=== PATIENT | female | born 1945 | race Caucasian/White ===

== ENCOUNTER 2019-10-30 06:30 | Day surgery (SDC) | payer OTHER ==
[2019-10-25 13:05] LABS: Basophils % 0.8 % (0-1.3); Hematocrit 44.6 % (36.0-45.0); Lymphocytes % 20.5 % (15.3-44.8); MPV 8.8 fL (7.6-11.3); RBC Red Blood Cell Count 4.74 M/uL (3.86-4.86)
[2019-10-25 13:14] LABS: Potassium 4.4 mmol/L (3.5-5.1)
--- NOTE | 2019-10-25 13:22 | RAD REPORT ---
EXAM DESCRIPTION: Everardo Tapia And Lisa (2 Views)10/25/2019 1:07 pm CLINICAL HISTORY: Pre op cardiac catheterization. Cardiomegaly COMPARISON: 2018 FINDINGS: The lungs appear clear of acute infiltrate. The heart is moderately enlarged Calcific densities overlying the shoulders may represent loose bodies IMPRESSION: No acute abnormalities displayed
--- NOTE | 2019-10-26 12:57 | EKG ---
Test Date: 2019-10-25 Test Time: 11:32:22 Implementation Coordinator: LEONARDO MEASUREMENT RESULTS: Intervals: Rate: 90 [place]: QRSD: 102 QT: 382 QTc: 467 [place]: P: [place]: QRS: -40 T: 135 INTERPRETIVE STATEMENTS: Atrial fibrillation Left axis deviation ST & T wave abnormality, consider lateral ischemia or digitalis effect Abnormal ECG Electronically Signed On 10-26-19 12:56:53 CDT by Tahir Lozano
[2019-10-30] MEDS ORDERED: LIDOCAINE 1% 20 ML MDV ONE (06:44)
[2019-10-30] MEDS ORDERED: HEPA 1000U/500MLS 1,000 UNIT/500 ML BAG IV ONE (06:44)
[2019-10-30] MEDS ORDERED: NA CHLORIDE 0.9% 500 ML ONE (07:08)
[2019-10-30] MEDS ORDERED: FENTANYL CITR 100 MCG/2 ML ONE (07:24)
[2019-10-30] MEDS ORDERED: MIDAZOLAM HCL 2 MG/2 ML INJ ONE (07:24)
[2019-10-30] MEDS ORDERED: ATROPINE SULF 1 MG/10 ML SYR IV ONE (07:24)
[2019-10-30] MEDS ORDERED: NA CHLORIDE 0.9% 0 ML ONE (07:24)
[2019-10-30 08:51] VITALS: TEMP 97.6
[2019-10-30 10:33] VITALS: BP 106/70; O2SAT 98
--- NOTE | 2019-10-30 22:58 | OP ---
Date of Procedure: 10/30/2019 Surgeon: Tahir Lozano MD Kiln Maintenance: Maxi Yousif. Procedures: Left heart catheterization, selective coronary arteriogram, and the left ventriculogram. Indication: With unstable angina, shortness of breath and atrial fibrillation. History Of Present Illness: Ms. Perez is 74, admitted as an outpatient to the [facility] today becau se of persistent dyspnea on exertion, chest tightness radiating to the right and left shoulder. She has a history of atrial fibrillation, has had congestive heart failure in the past. Description Of Procedure: She was prepped and draped in the routine sterile fashion. Given Versed a nd fentanyl for sedation. A 6-Hebrew sheath introduced in the right common femoral artery successful ly. Mickey catheter left and right were used to cannulate the left and right main respectively. He r right coronary was normal. It was small. Her left coronary system was normal. The left main and circumflex and LAD were normal. She was very left dominant. The pigtail was introduced in the left ventricle and angiography revealed an ejection fraction about 25-30% with severe global hypokinesis. Atrial fibrillation was noted. Her EDP was 20 mmHg. Patient tolerated the procedure well. Complication: None. Blood Loss: 5 mL. Anesthesia: Total conscious sedation was 30 minutes. Final Diagnoses: Severe congestive heart failure, atrial fibrillation. Plan: To continue her present regimen. She will resume Xarelto in the morning. I think, we need to consider the use of Entresto in addition to a beta-maura and I think if she does not improve, we s calin consider either ablation of her atrial fibrillation or possibly a biventricular pacemaker and d efibrillator. The case was discussed with the family. She can go home today after 2 hours of bedres t and I will see her in the office in a week. ALESIA/LOIDA Voice ID: [id number] Report ID: [id number]
== END 2019-10-30 10:15 | disposition home or self-care (01) ==
LOC: CCL 06:30
DX: I11.0 Hypertensive heart disease with heart failure (principal); I50.22 Chronic systolic (congestive) heart failure; I48.0 Paroxysmal atrial fibrillation; I70.213 Atherosclerosis of native arteries of extremities with intermittent claudication, bilateral legs; E78.5 Hyperlipidemia, unspecified; E03.9 Hypothyroidism, unspecified; Z79.01 Long term (current) use of anticoagulants; Z88.3 Allergy status to other anti-infective agents; Z82.49 Family history of ischemic heart disease and other diseases of the circulatory system
CPT/HCPCS: 93005; 85025; 80048; 36415; 85610; 85730; 71046; 93458; C1893; J2250; J3010; J7040; J0583

== ENCOUNTER 2019-11-23 19:42 | Observation (INO) | payer OTHER ==
[2019-11-23 20:16] LABS: Basophils % 0.4 % (0-1.3); Hematocrit 45.4 % (36.0-45.0); MPV 9.4 fL (7.6-11.3); RBC Red Blood Cell Count 4.85 M/uL (3.86-4.86)
--- NOTE | 2019-11-23 20:23 | RAD REPORT ---
EXAM DESCRIPTION: RAD - Chest Single View - 11/23/2019 8:17 pm CLINICAL HISTORY: CHEST PAIN Chest pain. COMPARISON: <Comparisons> FINDINGS: Portable technique limits examination quality. Mild interstitial pulmonary edema seen. The heart is moderately enlarged size. No displaced fractures . IMPRESSION: Mild CHF or volume overload.
[2019-11-23 20:36] LABS: Protime INR 4.38
[2019-11-23 20:42] LABS: ALT/SGPT 26 U/L (12-78); Albumin 3.8 g/dL (3.4-5.0); Alkaline Phosphatase 67 U/L (45-117); BUN Blood Urea Nitrogen 13 mg/dL (7-18); Bicarbonate 23 mmol/L (21-32); Bilirubin Direct 0.4 mg/dL (0-0.2); Bilirubin Total 1.8 mg/dL (0.2-1.0); Glucose Level 140 mg/dL (74-106); NT PRO-BNP 17460 pg/mL (<450); Protein, Total 7.3 g/dL (6.4-8.2); Sodium Level 132 mmol/L (136-145); Troponin (Emerg Dept Use Only) < 0.02 ng/mL (0.0-0.045)
[2019-11-23 20:54] LABS: AST/SGOT 38 U/L (15-37); Magnesium 1.6 mg/dL (1.8-2.4); Potassium 4.1 mmol/L (3.5-5.1)
[2019-11-23] MEDS ORDERED: FUROSEMIDE 40 MG/4 ML VIAL ONE (21:14)
--- NOTE | 2019-11-23 21:26 | ER ---
Nurse's Notes [facility] Name: Kimmy Perez Age: 74 yrs Sex: Female : 1945 Arrival Date: 11/23/2019 Time: 19:52 Bed 2 Private MD: Diagnosis: Acute combined systolic (congestive) and diastolic (congestive) heart failure;Chest pain on breathing Presentation: 11/22 19:52 Chief complaint: EMS states: Reports pt started feeling SOB, pt reports having ea medication change from digoxin to amiodarone 2 days ago. Pt reports she feels the medication change may have been the cause of her feeling this way. Coronavirus screen: Proceed with normal triage. Ebola Screen: No symptoms or risks identified at this time. Initial Sepsis Screen: Does the patient meet any 2 criteria? No. Patient's initial sepsis screen is negative. Does the patient have a suspected source of infection? No. Patient's initial sepsis screen is negative. Risk Assessment: Do you want to hurt yourself or someone else? Patient reports no desire to harm self or others. Onset of symptoms was November 23, 2019. 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 - Social history:: Patient/guardian denies using alcohol, street drugs, The patient lives with family, Smoking status: Patient denies any tobacco usage or history of. - Family history:: not pertinent. Screenin:57 Abuse screen: Denies threats or abuse. Nutritional screening: No deficits noted. ea Tuberculosis screening: No symptoms or risk factors identified. Fall Risk None identified. Assessment: 20:02 General: Appears uncomfortable, Behavior is calm, cooperative. Pain: Pain: Complains of ea pain in chest. Neuro: Level of Consciousness is awake, alert, obeys commands, Oriented to person, place, time. Respiratory: Airway is patent Respiratory effort is even, unlabored, Respiratory pattern is regular, symmetrical. EENT: Pt is deaf, and mute. Pt has a stoma to neck. Derm: Skin is pink, warm \T\ dry. 20:36 Reassessment: critical test result- 4.38 INR and PT 50.2 relayed by mg2 [id number] informed. 21:30 Reassessment: Patient and/or family updated on plan of care and expected duration. Pain ea level reassessed. Patient is alert, oriented x 3, equal unlabored respirations, skin warm/dry/pink. 22:37 Reassessment: Patient and/or family updated on plan of care and expected duration. Pain ea level reassessed. Patient is alert, oriented x 3, equal unlabored respirations, skin warm/dry/pink. 23:50 Reassessment: Patient and/or family updated on plan of care and expected duration. Pain ea level reassessed. Patient is alert, oriented x 3, equal unlabored respirations, skin warm/dry/pink. 11/23 00:04 Reassessment: Report given to receiving nurse on second floor. ea 00:18 Reassessment: Patient and/or family updated on plan of care and expected duration. Pain ea level reassessed. Patient is alert, oriented x 3, equal unlabored respirations, skin warm/dry/pink. Pt admitted to second floor. Left ED via wheelchair per tech. Pt tolerating well. No s/s of pain or discomfort noted to this time. Vital Signs: 11/22 19:52 BP 109 / 91; Pulse 88; Resp 20; Temp 98.9; Pulse Ox 97% on R/A; Weight 63.5 kg; Height ea 5 ft. 3 in. (160.02 cm); 20:54 BP 119 / 83; Pulse 92; Resp 19; Pulse Ox 94% on R/A; ea 21:37 BP 113 / 94; Pulse 93; Resp 19; Pulse Ox 95% ; ea 22:39 BP 130 / 89; Pulse 87; Resp 18; Pulse Ox 97% on R/A; mg2 23:30 BP 158 / 98; Pulse 91; Resp 18; Pulse Ox 95% on R/A; mg2 11/23 00:19 BP 167 / 87; Pulse 62; Resp 17; Temp 98.7; Pulse Ox 97% on R/A; ea 11/22 19:52 Body Mass Index 24.80 (63.50 kg, 160.02 cm) ea ED Course: 11/22 19:52 Patient arrived in ED. ea 19:53 Cedrick Heredia MD is Attending Physician. ma2 19:57 Triage completed. ea 19:58 Arm band placed on right wrist. Patient placed in an exam room, on a stretcher, on ea night monitor, on pulse oximetry. 19:58 Patient has correct armband on for positive identification. Placed in gown. Bed in low ea position. Call light in reach. Side rails up X2. 20:00 IV discontinued, intact, bleeding controlled, No redness/swelling at site. Pressure ea dressing applied, EMS IV discontinued. 20:04 Nadira Nicole RN is Primary Nurse. ea 20:07 Inserted saline lock: 20 gauge in left antecubital area, using aseptic technique. Blood mg2 collected. 20:10 No provider procedures requiring assistance completed. mg2 20:10 Maintain EMS IV. Dressing intact. Site clean \T\ dry. Gauge \T\ site: 20 \T\ RAC. mg2 20:18 XRAY Chest (1 view) In Process Unspecified. EDMS 21:25 Heri Abad is Hospitalizing Provider. ma2 Administered Medications: 21:18 Drug: Lasix 40 mg Route: IVP; Site: left antecubital; mg2 21:37 Follow up: Response: No adverse reaction ea Outcome: 21:25 Decision to Hospitalize by Provider. ma2 21:26 Instructed on the need for admit, Demonstrated understanding of instructions. ea 11/23 00:04 Condition: stable ea 00:04 Admitted to Med/surg accompanied by tech, via stretcher, room 216, with chart, Report mg2 called to SABRINA Morrissey 00:20 Patient left the ED. ea Signatures: Dispatcher [employer] EDMS Nadira Nicole, Cedrick Corrales RN, ea, MD MD maBryce Recinos RN RN mg2
--- NOTE | 2019-11-23 21:26 | EDPHYS ---
Physician Documentation [facility] Name: Kimmy Perez Age: 74 yrs Sex: Female : 1945 Arrival Date: 11/23/2019 Time: 19:52 Bed 2 Private MD: ED Physician Cedrick Heredia HPI: 11/22 20:10 This 74 yrs old Female presents to ER via EMS with complaints of chest pain\E\. ma2 20:10 The patient or guardian reports chest pain that is located primarily in the substernal ma2 area, anterior aspect of right upper chest. Onset: gradually, 1 day(s) ago. Associated signs and symptoms: Pertinent negatives: cough, dizziness, lower extremity pain, nausea. Severity of pain: At its worst the pain was moderate in the emergency department the pain is unchanged. The patient has experienced similar episodes in the past. 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 - Social history:: Patient/guardian denies using alcohol, street drugs, The patient lives with family, Smoking status: Patient denies any tobacco usage or history of. - Family history:: not pertinent. ROS: 20:10 Constitutional: Negative for fever, chills, and weight loss. ma2 20:10 All other systems are negative. Exam: 20:10 Constitutional: This is a well developed, well nourished patient who is awake, alert, ma2 and in no acute distress. Eyes: Pupils equal round and reactive to light, extra-ocular motions intact. Lids and lashes normal. Conjunctiva and sclera are non-icteric and not injected. Cornea within normal limits. Periorbital areas with no swelling, redness, or edema. ENT: Nares patent. No nasal discharge, no septal abnormalities noted. Tympanic membranes are normal and external auditory canals are clear. Oropharynx with no redness, swelling, or masses, exudates, or evidence of obstruction, uvula midline. Mucous membranes moist. Neck: Trachea midline, no thyromegaly or masses palpated, and no cervical lymphadenopathy. Supple, full range of motion without nuchal rigidity, or vertebral point tenderness. No Meningismus. Chest/axilla: Normal chest wall appearance and motion. Nontender with no deformity. No lesions are appreciated. Cardiovascular: Regular rate and rhythm with a normal S1 and S2. No gallops, murmurs, or rubs. Normal PMI, no JVD. No pulse deficits. Respiratory: Lungs have equal breath sounds bilaterally, clear to auscultation and percussion. No rales, rhonchi or wheezes noted. No increased work of breathing, no retractions or nasal flaring. Abdomen/GI: Soft, non-tender, with normal bowel sounds. No distension or tympany. No guarding or rebound. No evidence of tenderness throughout. MS/ Extremity: Pulses equal, no cyanosis. Neurovascular intact. Full, normal range of motion. Neuro: Awake and alert, GCS 15, oriented to person, place, time, and situation. Cranial nerves II-XII grossly intact. Motor strength 5/5 in all extremities. Sensory grossly intact. Cerebellar exam normal. Normal gait. Vital Signs: 19:52 BP 109 / 91; Pulse 88; Resp 20; Temp 98.9; Pulse Ox 97% on R/A; Weight 63.5 kg; Height ea 5 ft. 3 in. (160.02 cm); 20:54 BP 119 / 83; Pulse 92; Resp 19; Pulse Ox 94% on R/A; ea 21:37 BP 113 / 94; Pulse 93; Resp 19; Pulse Ox 95% ; ea 22:39 BP 130 / 89; Pulse 87; Resp 18; Pulse Ox 97% on R/A; mg2 23:30 BP 158 / 98; Pulse 91; Resp 18; Pulse Ox 95% on R/A; mg2 11/23 00:19 BP 167 / 87; Pulse 62; Resp 17; Temp 98.7; Pulse Ox 97% on R/A; ea 11/22 19:52 Body Mass Index 24.80 (63.50 kg, 160.02 cm) ea MDM: 11/22 19:53 Patient medically screened. ma2 20:10 Differential diagnosis: abnormal EKG, anxiety, coronary artery disease congestive heart ma2 failure gastroesophageal reflux disease (GERD), stable angina. Data reviewed: vital signs, nurses notes, lab test result(s), EKG. Counseling: I had a detailed discussion with the patient and/or guardian regarding: the historical points, exam findings, and any diagnostic results supporting the discharge/admit diagnosis, the presence of at least one elevated blood pressure reading (>120/80) during this emergency department visit, the need for outpatient follow up. 11/22 19:55 Order name: Basic Metabolic Panel [facility] 11/22 19:55 Order name: CBC with Diff [facility] 11/22 19:55 Order name: LFT's; Complete Time: 21:00 [facility] 11/22 19:55 Order name: Magnesium; Complete Time: 21:00 [facility] 11/22 19:55 Order name: NT PRO-BNP; Complete Time: 21:00 [facility] 11/22 19:55 Order name: PT-INR; Complete Time: 21:00 [facility] 11/22 19:55 Order name: Troponin (emerg Dept Use Only); Complete Time: 21:00 [facility] 11/22 19:55 Order name: XRAY Chest (1 view); Complete Time: 21:00 [facility] 11/22 19:55 Order name: EKG; Complete Time: 19:55 [facility] 11/22 19:55 Order name: Cardiac monitoring; Complete Time: 20:10 [facility] 11/22 19:55 Order name: EKG - Nurse/Tech; Complete Time: 20:10 [facility] 11/22 19:55 Order name: Basic Metabolic Panel; Complete Time: 21:00 [facility] 11/22 19:55 Order name: CBC with Automated Diff; Complete Time: 21:00 [facility] 11/22 19:55 Order name: IV Saline Lock; Complete Time: 20:10 [facility] 11/22 19:55 Order name: Labs collected and sent; Complete Time: 20:09 [facility] 11/22 19:55 Order name: O2 Per Protocol; Complete Time: 20:09 [facility] 11/22 19:55 Order name: O2 Sat Monitoring; Complete Time: 20:09 ia2 Administered Medications: 21:18 Drug: Lasix 40 mg Route: IVP; Site: left antecubital; mg2 21:37 Follow up: Response: No adverse reaction ea Disposition: 11/23/19 21:25 Hospitalization ordered by Heri Abad for Observation. Preliminary diagnosis are Acute combined systolic (congestive) and diastolic (congestive) heart failure, Chest pain on breathing. - Bed requested for Telemetry/MedSurg (observation). - Status is Observation. ea - Condition is Stable. - Problem is new. - Symptoms are unchanged. Signatures: Dispatcher [employer] Jaqueline Ann RN RN cg Nadira Nicole RN RN ea Cedrick Heredia MD MD ia2 Bryce Wright RN RN mg2 Corrections: (The following items were deleted from the chart) 23:38 21:25 Hospitalization Ordered by Heri Aabd for Observation. Preliminary diagnosis cg is Acute combined systolic (congestive) and diastolic (congestive) heart failure; Chest pain on breathing. Bed requested for Telemetry/MedSurg (observation). Status is Observation. Condition is Stable. Problem is new. Symptoms are unchanged. [facility] 23:40 23:38 11/23/2019 21:25 Hospitalization Ordered by Heri Abad for Observation. cg Preliminary diagnosis is Acute combined systolic (congestive) and diastolic (congestive) heart failure; Chest pain on breathing. Bed requested for Telemetry/MedSurg (observation). Status is Observation. Condition is Stable. Problem is new. Symptoms are unchanged. cg 11/23 00:20 11/22 23:40 11/23/2019 21:25 Hospitalization Ordered by Heri Abad for Observation. ea Preliminary diagnosis is Acute combined systolic (congestive) and diastolic (congestive) heart failure; Chest pain on breathing. Bed requested for Telemetry/MedSurg (observation). Status is Observation. Condition is Stable. Problem is new. Symptoms are unchanged. cg
--- NOTE | 2019-11-23 23:07 | P.HP ---
Certification for Inpatient Patient admitted to: Observation With expected LOS: <2 Midnights Practitioner: I am a practitioner with admitting privileges, knowledge of patient current condition, hospital course, and medical plan of care. Services: Services provided to patient in accordance with Admission requirements found in Title 42 Section 412.3 of the Code of Federal Regulations Patient History Date of Service: 11/23/19 Reason for admission: Right shoulder pain and shortness of breath History of Present Illness: 74-year-old woman with a history of chronic atrial fib, anticoagulating with Xarelto, history of congestive heart failure on Lasix maintenance therapy presented emergency department with a complaint of right shoulder pain which is worse with exertion and breathing. According to the son, she has chronic right shoulder pain from a remote history of fall. The shoulder pain relapse whenever patient is short of breath and working harder to breathe. Her digoxin was changed to amiodarone 2 days ago. She is being evaluated for electric cardioversion by her lpn instructor. Chest x-ray in the ED demonstrated mild CHF. Initial troponin is negative. BNP is severely elevated. EKG shows atrial fibrillation. Patient is placed under observation for further management. Allergies NSAIDS (Non-Steroidal Anti-Inflamma Allergy (Mild, Verified 10/25/19 12:25) Hives/Rash nitrofurantoin [From Macrobid] Adverse Reaction (Mild, Verified 10/25/19 12:25) palpitations Home Medications: Levothyroxine Sodium [Levothroid] 100 mcg PO DAILY 03/16/12 Furosemide [Lasix] 20 mg PO DAILY PRN #30 tablet 02/19/18 Rivaroxaban [Xarelto] 20 mg PO DAILY #30 tablet 02/19/18 Amiodarone HCl [Cordarone*] 1 tab PO BID 11/24/19 Carvedilol [Coreg] 6.25 mg PO BID 11/24/19 Nitroglycerin [Nitrostat*] 0.4 mg SL UD PRN #30 tab 11/24/19 traMADol HCL [Ultram*] 50 mg PO Q6H PRN #20 tab 11/24/19 - Past Medical/Surgical History Diabetic: No -: Atrial fibrillation -: Throat CA -: Laryngectomy -: Bilateral knee surgery -: Cholecystectomy - Family History Family History: Reviewed- Non-Contributory - Family History Father -: Heart disease, Cancer Mother -: Heart disease, Cancer - Social History Smoking Status: Never smoker Alcohol use: No CD- Drugs: No Caffeine use: Yes Review of Systems Other: Except as documented, all other systems reviewed and negative. Physical Examination - Physical Exam General: Alert, In no apparent distress HEENT: Normocephalic, Mucous membr. moist/pink, Sclerae nonicteric Neck: Supple, JVD not distended Respiratory: Clear to auscultation bilaterally, Normal air movement Cardiovascular: No edema, Normal S1 S2, No murmurs, Irregular heart rate/rhythm Gastrointestinal: Normal bowel sounds, Soft and benign, No tenderness Musculoskeletal: No swelling, No erythema Integumentary: No rashes Neurological: Normal speech, Normal strength at 5/5 x4 extr, Cranial nerves 3-12 intact - Studies Laboratory Data (last 24 hrs) 11/23/19 20:07: PT 50.2 H, INR 4.38 H* 11/23/19 20:07: WBC 6.7, Hgb 15.1 H, Hct 45.4 H, Plt Count 223 11/23/19 20:07: Sodium 132 L, Potassium 4.1, BUN 13, Creatinine 1.25, Glucose 140 H, Magnesium 1.6 L D, Total Bilirubin 1.8 H, AST 38 H, ALT 26, Alkaline Phosphatase 67 Assessment and Plan - Problems (Diagnosis) (1) Chronic atrial fibrillation Current Visit: Yes Status: Acute (2) Coagulopathy Current Visit: Yes Status: Acute (3) Chest pain Onset Date: 02/12/18 Current Visit: No Status: Acute (4) Rotator cuff injury Onset Date: 02/12/18 Current Visit: No Status: Acute (5) Acute on chronic diastolic heart failure Current Visit: Yes Status: Acute - Plan Place under observation. Chest pain appears atypical but it is worse with exertion Rule out ACS Trend troponin Hold Xarelto given coagulopathy and monitor PT and INR Echocardiogram Cardiology consult. Patient took multiple does of Lasix this morning and also given IV Lasix in the ED. She is more on the dry side and will hold Lasix. - Advance Directives Does patient have a Living Will: No Does patient have a Durable POA for Healthcare: No - Code Status/Comfort Care Code Status: Full Code
[2019-11-24] MEDS ORDERED: NA CHLORIDE 0.9% 1,000 ML ONE (00:24)
[2019-11-24 00:58] VITALS: BMI 22.6
[2019-11-24] MEDS ORDERED: NITROGLYCERIN 0.4 MG/TAB SL PRN (01:04)
[2019-11-24] MEDS: TRAMADOL HCL 50 MG TAB PO PRN ×2 (01:31→09:09)
[2019-11-24 01:49] LABS: HDL Cholesterol 51 mg/dL (40-60); LDL Cholesterol, Calculated 130 (<130); Troponin I < 0.02 ng/mL (0.0-0.045)
[2019-11-24 06:01] LABS: Absolute Lymphocytes (CBC) 0.9 K/uL (0.7-4.9); Basophils % 0.3 % (0-1.3); Hematocrit 40.9 % (36.0-45.0); Lymphocytes % 13.9 % (15.3-44.8); MPV 9.7 fL (7.6-11.3); RBC Red Blood Cell Count 4.46 M/uL (3.86-4.86)
[2019-11-24 06:08] LABS: BUN Blood Urea Nitrogen 13 mg/dL (7-18); Bicarbonate 26 mmol/L (21-32); Glucose Level 103 mg/dL (74-106); Potassium 3.3 mmol/L (3.5-5.1); Sodium Level 135 mmol/L (136-145); Troponin I < 0.02 ng/mL (0.0-0.045)
--- NOTE | 2019-11-24 08:48 | P.DS ---
Admission Date: 11/23/19 Discharge Date: 11/24/19 Disposition: ROUTINE DISCHARGE Discharge Condition: FAIR Reason for Admission: Right shoulder pain and shortness of breath - Problems (1) Chronic atrial fibrillation Status: Acute (2) Coagulopathy Status: Acute (3) Chest pain Onset Date: 02/12/18 Status: Acute (4) Rotator cuff injury Onset Date: 02/12/18 Status: Acute (5) Acute on chronic diastolic heart failure Status: Acute Brief History of Present Illness: 74-year-old woman with a history of chronic atrial fib, anticoagulating with Xarelto, history of congestive heart failure on Lasix maintenance therapy presented emergency department with a complaint of right shoulder pain which is worse with exertion and breathing. According to the son, she has chronic right shoulder pain from a remote history of fall. The shoulder pain relapse whenever patient is short of breath and working harder to breathe. Her digoxin was changed to amiodarone 2 days ago. She is being evaluated for electric cardioversion by her junior qa analyst. Chest x-ray in the ED demonstrated mild CHF. Initial troponin is negative. BNP is severely elevated. EKG shows atrial fibrillation. Patient placed under observation for further management. Hospital Course: Patient received a dose of IV Lasix in the ED. She appeared compensated for CHF. Troponin trended came back negative. Patient noted to have coagulopathy. With INR at 4.38. I suspect significant interaction between amiodarone and Xarelto leading to the significant coagulopathy. Case discussed with cardiology.Xarelto changed to Eliquis 2.5 mg b.i.d. Patient has normal coronary arteries by cardiac catheterization 3 weeks ago. I suspect her symptoms are related to CHF exacerbation. Patient has clinically improved and deemed stable for discharge. Patient follows with an housesmith who is planning electric cardioversion in the near future. Vital Signs/Physical Exam: Temp Pulse Resp BP Pulse Ox 96.9 F 76 20 131/62 96 11/24/19 04:00 11/24/19 04:00 11/24/19 04:00 11/24/19 04:00 11/24/19 04:00 General: Alert, In no apparent distress Neck: Other (Tracheostomy) Respiratory: Clear to auscultation bilaterally, Normal air movement Cardiovascular: No edema, Normal S1 S2, Irregular heart rate/rhythm Gastrointestinal: Normal bowel sounds, Soft and benign, No tenderness Musculoskeletal: No swelling Integumentary: No rashes Laboratory Data at Discharge: WBC 6.4 K/uL (4.3-10.9) 11/24/19 05:24 Hgb 13.8 g/dL (12.0-15.0) 11/24/19 05:24 Hct 40.9 % (36.0-45.0) 11/24/19 05:24 Plt Count 218 K/uL (152-406) 11/24/19 05:24 PT 50.2 SECONDS (9.5-12.5) H 11/23/19 20:07 INR 4.38 H* 11/23/19 20:07 Sodium 135 mmol/L (136-145) L 11/24/19 05:24 Potassium 3.3 mmol/L (3.5-5.1) L 11/24/19 05:24 BUN 13 mg/dL (7-18) 11/24/19 05:24 Creatinine 1.04 mg/dL (0.55-1.3) 11/24/19 05:24 Glucose 103 mg/dL (74-106) 11/24/19 05:24 Magnesium 1.6 mg/dL (1.8-2.4) L D 11/23/19 20:07 Total Bilirubin 1.8 mg/dL (0.2-1.0) H 11/23/19 20:07 AST 38 U/L (15-37) H 11/23/19 20:07 ALT 26 U/L (12-78) 11/23/19 20:07 Alkaline Phosphatase 67 U/L (45-117) 11/23/19 20:07 Troponin I < 0.02 ng/mL (0.0-0.045) 11/24/19 05:24 Triglycerides 136 mg/dL (<150) 11/24/19 01:22 Cholesterol 208 mg/dL (<200) H 11/24/19 01:22 HDL Cholesterol 51 mg/dL (40-60) 11/24/19 01:22 Cholesterol/HDL Ratio 4.08 11/24/19 01:22 Home Medications: Levothyroxine Sodium [Levothroid] 100 mcg PO DAILY 03/16/12 Furosemide [Lasix] 20 mg PO DAILY PRN #30 tablet 02/19/18 Amiodarone HCl [Cordarone*] 1 tab PO BID 11/24/19 Amiodarone HCl [Cordarone*] 200 mg PO DAILY 30 Days #30 tab 11/24/19 Apixaban [Eliquis] 2.5 mg PO BID #60 tablet 11/24/19 Carvedilol [Coreg] 6.25 mg PO BID 11/24/19 Nitroglycerin [Nitrostat*] 0.4 mg SL UD PRN #30 tab 11/24/19 Pantoprazole Sodium [Protonix] 40 mg PO DAILY 30 Days #30 tablet. 11/24/19 traMADol HCL [Ultram*] 50 mg PO Q6H PRN #20 tab 11/24/19 New Medications: Amiodarone HCl [Cordarone*] 200 mg PO DAILY 30 Days #30 tab Apixaban [Eliquis] 2.5 mg PO BID #60 tablet Nitroglycerin [Nitrostat*] 0.4 mg SL UD PRN #30 tab PRN Reason: Pain Scale 2-4 (Mild) Pantoprazole Sodium [Protonix] 40 mg PO DAILY 30 Days #30 tablet. traMADol HCL [Ultram*] 50 mg PO Q6H PRN #20 tab PRN Reason: Pain Scale 5-7 (Moderate) Followup: Tahir Lozano MD [ACTIVE - CAN ADMIT] -
[2019-11-24] MEDS ORDERED: PROMETHAZINE INJ 25 MG/ML AMP IM ONE (09:46)
[2019-11-24 10:03] VITALS: BP 121/75; TEMP 97.6
--- NOTE | 2019-11-24 10:18 | EKG ---
Test Date: 2019-11-23 Test Time: 19:55:26 Catalogue Clerk: ALBERT MEASUREMENT RESULTS: Intervals: Rate: 90 VT: QRSD: 114 QT: 414 QTc: 506 [place]: P: VT: QRS: -43 T: 137 INTERPRETIVE STATEMENTS: Atrial fibrillation with premature ventricular or aberrantly conducted complexes Left axis deviation Incomplete left bundle branch block Nonspecific ST and T wave abnormality, probably digitalis effect Prolonged QT Abnormal ECG Compared to ECG 10/25/2019 11:32:22 Ventricular premature complex(es) now present Left bundle-branch block now present Prolonged QT interval now present Possible ischemia no longer present ST (T wave) deviation still present Electronically Signed On 11-24-19 10:17:42 CDT by Tahir Lozano
--- NOTE | 2019-11-24 13:31 | CON ---
Date of Consultation: 11/24/[address] Abad on 11/23/2019. I saw the patient on 11/24/2019. Reason For Consultation: Chest pain. History Of Present Illness: Ms. Perez is a 74-year-old woman. She is known to me from previous of fice visits and admission and a recent catheterization on 10/29/2019, where she was found to have nor mal coronaries, but was admitted for chest pain regardless. Patient has a history of CHF, AFib, hypo thyroidism. She has a history of deafness. She is legally blind and has had ear, nose, and throat c ancer in the past. I specifically cathed her a couple of weeks ago because of continuing symptoms of chest tightness, also worsening congestive heart failure, and atrial fibrillation, was found to have normal coronaries. Apparently, she saw Electrophysiology not long ago. I was hoping when she sees him, she does an ablation, but she is not really sure of the details and I will check on that myself, but she is now on amiodarone, in addition to Coreg, Xarelto, Lasix, and Synthroid, came in with atyp ical chest pain. Negative troponin. Potassium was 3.3, magnesium was 1.6. Her BNP was 17,460. Her INR was more than 4. Allergies: SHE IS ALLERGIC TO NONSTEROIDALS. Medications: Listed earlier. Review of Systems: Negative. Social History: Negative. Family History: Negative. Physical Examination: Vital Signs: Stable, afebrile. Atrial fibrillation, rate of 80. HEENT: Negative. Neck: Supple with no bruit, lymphadenopathy, JVD, or thyromegaly. Chest: Clear to auscultation and percussion. Cardiac: Revealed a regular rhythm and rate. No murmurs, gallops, or rubs. Abdomen: Benign. Extremities: Revealed no clubbing, cyanosis, or edema. Diagnostic Data: As stated earlier. Impression And Plan: 1.Chronic systolic congestive heart failure. 2.Chronic atrial fibrillation. 3.Normal coronaries. 4.Hypothyroidism. 5.Deafness. I think we need to switch her Xarelto to Eliquis because of elevated INR, which may have been the com bination of amiodarone and Xarelto. I will contact her EP doctor myself and see what was the plan be cause I was hoping she will have an ablation to get rid of her atrial fibrillation and maybe improve her ejection fraction. This may have been delayed or postponed because of the COVID virus situation. I will continue her present regimen. She absolutely does not need any more cardiac workup at this point, neither echocardiogram nor catheterization nor stress test, at least she can go home. I will discuss the case further with Dr. Abad. ALESIA/LOIDA Voice ID: [id number] Report ID: [id number]
[2019-11-24 13:49] VITALS: O2SAT 92
== END 2019-11-24 13:40 | disposition home or self-care (01) ==
LOC: ER 19:42 → ERHOLD 23:11 → 2ND 11-24 00:08
PROVIDERS: ADMIT Internal Medicine; ATTEND Internal Medicine
DX: R07.89 Other chest pain (principal); I50.22 Chronic systolic (congestive) heart failure; I48.20 Chronic atrial fibrillation, unspecified; E03.9 Hypothyroidism, unspecified; H91.90 Unspecified hearing loss, unspecified ear; H54.8 Legal blindness, as defined in USA; M25.511 Pain in right shoulder; G89.29 Other chronic pain; I44.7 Left bundle-branch block, unspecified; Z79.01 Long term (current) use of anticoagulants; Z79.899 Other long term (current) drug therapy; Z91.81 History of falling
CPT/HCPCS: 93005; 85025 ×2; 80048 ×2; 36415; 83735; 85610; 80061; 80076; 84484 ×3; 83880; 71045; 96374; 99285; J2550; J1940; J7030; G0378 ×2

== ENCOUNTER 2019-12-04 18:19 | Inpatient (IN) | payer OTHER ==
[2019-12-04 19:56] LABS: Absolute Lymphocytes (CBC) 0.9 K/uL (0.7-4.9); Basophils % 0.7 % (0-1.3); Hematocrit 43.7 % (36.0-45.0); Lymphocytes % 17.7 % (15.3-44.8); RBC Red Blood Cell Count 4.68 M/uL (3.86-4.86)
[2019-12-04] MEDS ORDERED: FENTANYL CITR 100 MCG/2 ML ONE (20:14)
[2019-12-04] MEDS ORDERED: ONDANSETRON 4 MG/2 ML VIAL ONE (20:14)
[2019-12-04] MEDS ORDERED: NA CHLORIDE 0.9% 1,000 ML ONE (20:14)
[2019-12-04 20:20] LABS: ALT/SGPT 71 U/L (12-78); AST/SGOT 59 U/L (15-37); Albumin 3.4 g/dL (3.4-5.0); Alkaline Phosphatase 97 U/L (45-117); BUN Blood Urea Nitrogen 19 mg/dL (7-18); Bicarbonate 28 mmol/L (21-32); Bilirubin Direct 0.8 mg/dL (0-0.2); Glucose Level 167 mg/dL (74-106); Magnesium 2.1 mg/dL (1.8-2.4); NT PRO-BNP 16066 pg/mL (<450); Potassium 3.4 mmol/L (3.5-5.1); Protein, Total 6.8 g/dL (6.4-8.2); Protime INR 2.71; Sodium Level 135 mmol/L (136-145); Troponin (Emerg Dept Use Only) < 0.02 ng/mL (0.0-0.045)
--- NOTE | 2019-12-04 20:50 | RAD REPORT ---
EXAM DESCRIPTION: RAD - Chest Single View - 12/04/2019 7:57 pm CLINICAL HISTORY: CHEST PAIN, shortness of breath COMPARISON: November 22 portable chest TECHNIQUE: AP portable chest image was obtained 12/04/2019 7:57 pm . FINDINGS: No peripheral mass consolidation. Lung markings less pronounced than seen previously. Card iomegaly is present. Vasculature is mildly prominent. No measurable pleural effusion and no pneumotho rax. No acute bony abnormality seen. No acute aortic findings suspected. IMPRESSION: Cardiomegaly similar to comparison. Vasculature and lung markings are less prominent than seen previously. No significant failure or volu me overload at this time.
--- NOTE | 2019-12-04 21:13 | RAD REPORT ---
EXAM DESCRIPTION: CT - Angio Aorta For Dissection - 12/04/2019 8:48 pm CLINICAL HISTORY: Chest pain;Abdominal distention COMPARISON: Portable chest same date, CT study February 2012 TECHNIQUE: Dynamically enhanced 3 mm thick images of the chest, abdomen, and upper pelvis were obtai hardeep during administration of approximately 150mL Isovue 370 IV contrast. Sagittal and coronal reconst ruction images were generated using MIP and reviewed. Exam utilizes a protocol to evaluate entire cou rse of the aorta. All CT scans are performed using dose optimization technique as appropriate and may include automated exposure control or mA/KV adjustment according to patient size. FINDINGS: Aorta is normal in diameter with no dissection or other acute aortic findings. Reconstruct ion images show no significant findings. No pulmonary artery acute finding. Cardiomegaly is present primarily a biatrial enlargement process. Left ventricle is prominent as well. No pericardial effusion. No peripheral mass or consolidation. No measurable ground-glass opacification. Interstitial pattern i s not clearly outside of normal range. Trace amounts of pleural fluid present. No pleural thickening or pleural based mass. No pneumothorax. Small reactive type hilar lymph nodes are present. No mediastinal lymphadenopathy. No chest wall mass or abnormal axillary lymphadenopathy. Mild narrowing of the origin of the celiac artery. No narrowing of the superior mesenteric artery. IM A is patent. No renal artery abnormality seen. The liver, spleen and pancreas show no suspicious find ings. No renal parenchymal abnormality seen. Medial to the left kidney there is a 4 centimeter oval f luid attenuation mass. Etiology is uncertain. This was present and measured 3.3 cm in 2012. This is n ot seen as a significant finding. No suspicious mass or abnormal lymphadenopathy. No free air or pne umatosis. Small amount of free fluid is present in the dependent portion of the pelvis. No urinary bl adder abnormality. Uterus and ovaries show no suspicious findings for age. IMPRESSION: Negative CT scan of the aorta. Patient has significant cardiomegaly new from 2012. No pericardial effusion. Mild failure is possible . No significant degree of failure or volume overload. No acute findings in the abdomen or pelvis. Cystic or low-density 4 centimeter mass medial to the lef t kidney has slowly enlarged since 2012 were it measured 3.3 cm. Etiology is uncertain. This is not s een as significant given the benign characteristics and slow growth over an 8 year interval.
[2019-12-04] MEDS ORDERED: ACETYLCYST 6,000 MG/30 ML VIAL ONE (22:00)
[2019-12-04] MEDS ORDERED: IPRATROPIUM BROM 0.5MG/2.5ML ONE (22:11)
[2019-12-04] MEDS ORDERED: LEVALBUTEROL 1.25 MG/3 ML NEB ONE (22:11)
--- NOTE | 2019-12-04 22:54 | P.HP ---
Certification for Inpatient Patient admitted to: Observation With expected LOS: <2 Midnights Practitioner: I am a practitioner with admitting privileges, knowledge of patient current condition, hospital course, and medical plan of care. Services: Services provided to patient in accordance with Admission requirements found in Title 42 Section 412.3 of the Code of Federal Regulations Patient History Date of Service: 12/04/19 Reason for admission: Abdominal pain History of Present Illness: 74-year-old woman with a history of chronic atrial fibrillation, tracheostomy, congestive heart presented emergency department with a complaint of right upper quadrant pain. Patient has been scheduled for cardiac ablation for rapid heart rate atrial fibrillation. She was here 2 weeks ago for nonspecific symptom, seen by cardiology and discharged to home. Her workup in the ED has been unremarkable compared to previous findings, except that her systolic blood pressure was in the 80s in the ED. She was in AFib with RVR at a rate of [address] angiogram was done which was negative for aneurysm or dissection, reported cardiomegaly and left renal cyst. She has significant tenderness in the right upper quadrant, CT scan report normal looking liver. She has a history of cholecystectomy. Patient is placed under observation for further evaluation. Allergies NSAIDS (Non-Steroidal Anti-Inflamma Allergy (Mild, Verified 10/25/19 12:25) Hives/Rash nitrofurantoin [From Macrobid] Adverse Reaction (Mild, Verified 10/25/19 12:25) palpitations Home Medications: Levothyroxine Sodium [Levothroid] 100 mcg PO DAILY 03/16/12 Furosemide [Lasix] 20 mg PO DAILY PRN #30 tablet 02/19/18 Amiodarone HCl [Cordarone*] 1 tab PO BID 11/24/19 Amiodarone HCl [Cordarone*] 200 mg PO DAILY 30 Days #30 tab 11/24/19 Apixaban [Eliquis] 2.5 mg PO BID #60 tablet 11/24/19 Carvedilol [Coreg] 6.25 mg PO BID 11/24/19 Nitroglycerin [Nitrostat*] 0.4 mg SL UD PRN #30 tab 11/24/19 Pantoprazole Sodium [Protonix] 40 mg PO DAILY 30 Days #30 tablet. 11/24/19 traMADol HCL [Ultram*] 50 mg PO Q6H PRN #20 tab 11/24/19 - Past Medical/Surgical History Diabetic: No -: Atrial fibrillation -: Throat CA -: CHF -: Throat Cancer -: Deaf/mute -: Laryngectomy -: Bilateral knee surgery -: Cholecystectomy -: valente fibroid mass removal on her breast - Family History Father -: Heart disease, Cancer Mother -: Heart disease, Cancer - Social History Alcohol use: No CD- Drugs: No Caffeine use: Yes Review of Systems Other: Except as documented, all other systems reviewed and negative. Physical Examination - Physical Exam General: Alert, In no apparent distress, Oriented x3 HEENT: Mucous membr. moist/pink, Sclerae nonicteric Neck: Supple, JVD not distended Respiratory: Clear to auscultation bilaterally, Normal air movement Cardiovascular: No edema, Normal S1 S2, Irregular heart rate/rhythm Gastrointestinal: Normal bowel sounds, Non-distended, Tenderness (Right upper quadrant) Musculoskeletal: No swelling, No erythema Integumentary: No rashes Neurological: Normal speech, Normal strength at 5/5 x4 extr - Studies Laboratory Data (last 24 hrs) 12/04/19 19:45: Lipase 109 12/04/19 19:43: PT 31.4 H, INR 2.71 12/04/19 19:43: WBC 5.2 D, Hgb 14.4, Hct 43.7, Plt Count 261 12/04/19 19:43: Sodium 135 L, Potassium 3.4 L, BUN 19 H, Creatinine 1.49 H, Glucose 167 H, Magnesium 2.1 D, Total Bilirubin 2.0 H, AST 59 H, ALT 71, Alkaline Phosphatase 97 Assessment and Plan - Problems (Diagnosis) (1) Abdominal pain Current Visit: Yes Status: Acute (2) Atrial fibrillation with rapid ventricular response Onset Date: 02/12/18 Current Visit: No Status: Acute (3) Hypotension Current Visit: Yes Status: Acute - Plan Not sure if patient's abdominal pain is secondary to ischemic bowel from atrial fibrillation and hypotension. Place under observation. Monitor blood pressure. Consider vasopressors for MAP less than 65. May probably need to transition to oral midodrine if pressors needed. Obtain RUQ sono. Continue home medications for atrial fibrillation. Continue anticoagulation. Hold Lasix for now given low BP. - Advance Directives Does patient have a Living Will: No Does patient have a Durable POA for Healthcare: No
--- NOTE | 2019-12-04 23:14 | EDPHYS ---
Physician Documentation [facility] Name: Kimmy Perez Age: 74 yrs Sex: Female : 1945 Arrival Date: 12/04/2019 Time: 18:23 Bed 14 Private MD: ED Physician Brian Osborne HPI: 12/03 19:56 This 74 yrs old Female presents to ER via Ambulatory with complaints of Chest regla Pain. 19:56 The patient or guardian reports chest pain that is located primarily in the substernal regla area, anterior chest wall, bilaterally. Onset: 1 day(s) ago. 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 - Social history:: Smoking status: Patient denies any tobacco usage or history of. - Family history:: not pertinent. ROS: 19:56 Constitutional: Negative for fever, chills, and weight loss, Eyes: Negative for injury, regla pain, redness, and discharge, ENT: Negative for injury, pain, and discharge, Neck: Negative for injury, pain, and swelling, Back: Negative for injury and pain, : Negative for injury, bleeding, discharge, and swelling, MS/Extremity: Negative for injury and deformity, Skin: Negative for injury, rash, and discoloration, Neuro: Negative for headache, weakness, numbness, tingling, and seizure, Psych: Negative for depression, anxiety, suicide ideation, homicidal ideation, and hallucinations, Allergy/Immunology: Negative for hives, rash, and allergies, Endocrine: Negative for neck swelling, polydipsia, polyuria, polyphagia, and marked weight changes, Hematologic/Lymphatic: Negative for swollen nodes, abnormal bleeding, and unusual bruising. 19:56 Cardiovascular: Positive for chest pain. 19:56 Respiratory: Positive for cough, shortness of breath. 19:56 Abdomen/GI: Positive for abdominal pain, abdominal cramps, abdominal distension, of the epigastric area, right upper quadrant and left upper quadrant. Exam: 19:56 Constitutional: This is a well developed, well nourished patient who is awake, alert, regla and in no acute distress. Head/Face: Normocephalic, atraumatic. Eyes: Pupils equal round and reactive to light, extra-ocular motions intact. Lids and lashes normal. Conjunctiva and sclera are non-icteric and not injected. Cornea within normal limits. Periorbital areas with no swelling, redness, or edema. Neck: Trachea midline, no thyromegaly or masses palpated, and no cervical lymphadenopathy. Supple, full range of motion without nuchal rigidity, or vertebral point tenderness. No Meningismus. Chest/axilla: Normal chest wall appearance and motion. Nontender with no deformity. No lesions are appreciated. Respiratory: Lungs have equal breath sounds bilaterally, clear to auscultation and percussion. No rales, rhonchi or wheezes noted. No increased work of breathing, no retractions or nasal flaring. Back: No spinal tenderness. No costovertebral tenderness. Full range of motion. Female : Normal external genitalia. Skin: Warm, dry with normal turgor. Normal color with no rashes, no lesions, and no evidence of cellulitis. MS/ Extremity: Pulses equal, no cyanosis. Neurovascular intact. Full, normal range of motion. Neuro: Awake and alert, GCS 15, oriented to person, place, time, and situation. Cranial nerves II-XII grossly intact. Motor strength 5/5 in all extremities. Sensory grossly intact. Cerebellar exam normal. Normal gait. Psych: Awake, alert, with orientation to person, place and time. Behavior, mood, and affect are within normal limits. 19:56 ENT: Posterior pharynx: is normal, no acute changes, trach. 19:56 Cardiovascular: Rate: tachycardic, Rhythm: irregularly irregular, Pulses: Pulses are 4+ in bilateral radial, brachial, femoral, popliteal, posterior tibial and and dorsalis pedis arteries.. Heart sounds: normal, Edema: is not appreciated, JVD: is not appreciated. 19:56 Respiratory: the patient does not display signs of respiratory distress, Respirations: normal, no acute changes, Breath sounds: decreased breath sounds, rhonchi, wheezing: expiratory that is mild, is heard diffusely. 19:56 Abdomen/GI: Inspection: distension, Bowel sounds: normal, Palpation: mild abdominal tenderness, Liver: no appreciated palpable abnormalities, Hernia: not appreciated. 12/04 18:37 ECG was reviewed by the Attending Physician. kdr Vital Signs: 12/03 18:57 BP 105 / 90; Pulse 104; Resp 18; Temp 97.9; Pulse Ox 100% on R/A; ph 20:30 BP 90 / 57; Pulse 86; Resp 18; Pulse Ox 98% on R/A; ea 22:30 BP 109 / 97; Pulse 99; Resp 19; Pulse Ox 93% on R/A; ea 23:30 BP 104 / 78; Pulse 86; Resp 18; Pulse Ox 93% ; ea 12/04 00:00 BP 105 / 92; Pulse 86; Resp 19; Pulse Ox 98% on R/A; ea 02:00 BP 110 / 78; Pulse 84; Resp 20; Pulse Ox 94% on R/A; ea 04:00 BP 115 / 96; Pulse 78; Resp 20; Pulse Ox 97% ; ea MDM: 12/03 19:11 Patient medically screened. [facility] 19:58 Data reviewed: vital signs, nurses notes, lab test result(s), EKG, radiologic studies, [facility] CT scan, plain films. 19:59 Antibiotic administration: Not indicated. Differential diagnosis: asthma, Bronchitis regla abnormal EKG, congestive heart failure esophagitis, hiatal hernia, pancreatitis, peptic ulcer disease, pneumonia, pulmonary embolus, stable angina, thoracic aortic disection, acute coronary syndrome, coronary artery disease, non-specific abd pain, pancreatitis, Pyelonephritis, urinary tract infection. HEART Score: History: Moderately Suspicious (1), ECG: Non specific repolarization disturbance / LBTB / PM (1), Age: > or = 65 years (2), Risk Factors: > or = 3 Risk factors for atherosclerotic disease (2), [Hypercholesterolemia] [Hypertension] [+ Family HX]. The patient was not given aspirin in the Emergency Department. Not indicated due to patient's past medical history. The patient's deep vein thrombosis risk score was calculated as follows: Total Score: 0. This patient was found to be at low risk for a deep vein thrombosis by using the Well's assessment criteria. The patient's pulmonary embolism risk score was calculated as follows: the patients heart rate is greater than 100 beats per minute (1.5 Pts) Total Score: 0-2 points. This patient was found to be at low risk for a pulmonary embolism by using the Well's assessment criteria. Immunization status: Pneumococcal vaccine: Influenza vaccine: Data interpreted: conveyor monitor: rate is 104 beats/min, Pulse oximetry: on 2L(s) per nasal canula, is 100 %. Test interpretation: by ED physician or midlevel provider: ECG, plain radiologic studies. 21:42 ED course: pt co of chest pain abd abdominal pain. ED course: chf, abd pain, renal regla insufficiency acure on chronic. 12/03 18:56 Order name: Basic Metabolic Panel; Complete Time: 21:11 12/03 18:56 Order name: CBC with Diff; Complete Time: 21:11 12/03 18:56 Order name: LFT's; Complete Time: 21:11 12/03 18:56 Order name: Magnesium; Complete Time: 21:11 12/03 18:56 Order name: NT PRO-BNP; Complete Time: 21:11 12/03 18:56 Order name: PT-INR; Complete Time: 21:11 12/03 18:56 Order name: Troponin (emerg Dept Use Only); Complete Time: 21:11 12/03 19:55 Order name: Lipase; Complete Time: 21:11 [facility] 12/03 19:55 Order name: Urine Culture [facility] 12/03 23:18 Order name: Urine Dipstick--Ancillary (enter results) ar5 12/04 07:54 Order name: CBC with Automated Diff [facility] 12/04 08:32 Order name: Comprehensive Metabolic Panel [facility] 12/04 08:32 Order name: Phosphorus [facility] 12/04 08:32 Order name: T4 Free [facility] 12/03 18:56 Order name: XRAY Chest (1 view); Complete Time: 21:11 12/03 21:13 Order name: CT Chest Abdomen Pelvis W/O Contrast [facility] 12/03 21:15 Order name: CT; Complete Time: 21:40 [facility] 12/04 08:32 Order name: Magnesium [facility] 12/04 08:32 Order name: Thyroid Stimulating Hormone [facility] 12/04 09:21 Order name: US [facility] 12/04 15:00 Order name: CORONAVIRUS [facility] 12/04 19:06 Order name: Glucose, Ancillary Testing [facility] 12/04 19:13 Order name: Glucose, Ancillary Testing [facility] 12/04 20:51 Order name: Glucose, Ancillary Testing [facility] 12/04 22:07 Order name: Urine Dipstick-Ancillary [facility] 12/05 08:07 Order name: CBC with Automated Diff [facility] 12/05 08:07 Order name: Basic Metabolic Panel [facility] 12/05 10:37 Order name: CBC Smear Scan [facility] 12/05 12:45 Order name: Glucose, Ancillary Testing [facility] 12/03 18:56 Order name: EKG; Complete Time: 18:57 ph 12/03 18:56 Order name: Cardiac monitoring; Complete Time: 19:53 ph 12/03 18:56 Order name: EKG - Nurse/Tech; Complete Time: 19:53 ph 12/03 18:56 Order name: IV Saline Lock; Complete Time: 19:53 ph 12/03 18:56 Order name: Labs collected and sent; Complete Time: 19:53 ph 12/03 18:56 Order name: O2 Per Protocol; Complete Time: 19:53 ph 12/03 18:56 Order name: O2 Sat Monitoring; Complete Time: 19:53 ph 12/03 19:55 Order name: Urine Dipstick-Ancillary (obtain specimen); Complete Time: 04:56 regla 12/04 09:23 Order name: ED[facility] 12/04 19:02 Order name: [facility] EC/09 18:37 Rate is 101 beats/min. Rhythm is regular, Sinus Rhythm with Unifocal PVCs, Left bundle kdr branch block. QRS [place] is Normal. Left axis deviation noted. QRS interval is normal. QT interval is normal. No Q waves. Clinical impression: NSR w/ Non-specific ST/T Changes. Administered Medications: Discontinued: NS 0.9% 1000 ml IV at 125 ml/hr continuous 12/03 20:15 Drug: NS 0.9% 1000 ml Route: IV; Rate: 125 ml/hr; Site: right antecubital; ea 20:16 Drug: fentaNYL (PF) 25 mcg {Note: RASS 0.} Route: IVP; Site: right antecubital; ea 21:30 Follow up: Response: No adverse reaction ea 20:16 Drug: Zofran (Ondansetron) 4 mg Route: IVP; Site: right antecubital; ea 20:30 Follow up: Response: No adverse reaction ea 22:27 Drug: Mucomyst - Acetylcysteine 600 mg Route: PO; ea 23:00 Follow up: Response: No adverse reaction ea 22:38 Drug: Xopenex 1.25 mg Route: Inhalation; ea 22:38 Drug: AtroVENT Aerosol 0.5 mg Route: Inhalation; ea 12/04 00:36 Drug: Rocephin 1 grams Route: IV; Rate: per protocol; Site: right antecubital; ea 01:00 Follow up: Response: No adverse reaction; IV Status: Completed infusion ea 04:00 Drug: morphine 2 mg {Note: as ordered by for admission in [facility].} Route: sg IVP; Site: right antecubital; 04:56 Follow up: Response: No adverse reaction ea Disposition: 12/04/19 21:47 Hospitalization ordered by Heri Abad for Inpatient Admission. Preliminary diagnosis are Unspecified combined systolic (congestive) and diastolic (congestive) heart failure, Hypokalemia, Unspecified kidney failure - acute on chronic, Other chest pain, Urinary tract infection, site not specified. - Bed requested for Telemetry/MedSurg (Inpatient). - Status is Inpatient Admission. bp - Condition is Fair. - Problem is new. - Symptoms have improved. Signatures: Dispatcher [employer] EDDajuan Freedman RN RN sg Anderson, Corey, MD MD cha Rittger, Kevin, MD MD kdr Munoz, Edgar RN Lorena Martinez RN RN lp1 Mary Handley RN Jaqueline Bravo ph, RN Nadira Kumar RN RN ea Aguilar, Jose RN RN Lee Gonzalez RN Faina Cisneros Corrections: (The following items were deleted from the chart) 00:05 12/03 21:47 Hospitalization Ordered by Heri Abad for Inpatient Admission. lp1 Preliminary diagnosis is Unspecified combined systolic (congestive) and diastolic (congestive) heart failure; Hypokalemia; Unspecified kidney failure - acute on chronic; Other chest pain. Bed requested for Telemetry/MedSurg (Inpatient). Status is Inpatient Admission. Condition is Fair. Problem is new. Symptoms have improved. regla 12/04 00:12 00:12/04/2019 21:47 Hospitalization Ordered by Heri Abad for Inpatient regla Admission. Preliminary diagnosis is Unspecified combined systolic (congestive) and diastolic (congestive) heart failure; Hypokalemia; Unspecified kidney failure - acute on chronic; Other chest pain. Bed requested for [facility] ER HOLD. Status is Inpatient Admission. Condition is Fair. Problem is new. Symptoms have improved. lp1 16:53 00:12 12/04/2019 21:47 Hospitalization Ordered by Heri Abad for Inpatient eb Admission. Preliminary diagnosis is Unspecified combined systolic (congestive) and diastolic (congestive) heart failure; Hypokalemia; Unspecified kidney failure - acute on chronic; Other chest pain; Urinary tract infection, site not specified. Bed requested for [facility] ER HOLD. Status is Inpatient Admission. Condition is Fair. Problem is new. Symptoms have improved. regla 19:23 16:53 12/04/2019 21:47 Hospitalization Ordered by Heri Abad for Inpatient em Admission. Preliminary diagnosis is Unspecified combined systolic (congestive) and diastolic (congestive) heart failure; Hypokalemia; Unspecified kidney failure - acute on chronic; Other chest pain; Urinary tract infection, site not specified. Bed requested for Telemetry/MedSurg (Inpatient). Status is Inpatient Admission. Condition is Fair. Problem is new. Symptoms have improved. eb 20:48 19:23 12/04/2019 21:47 Hospitalization Ordered by Heri Abad for Inpatient cg Admission. Preliminary diagnosis is Unspecified combined systolic (congestive) and diastolic (congestive) heart failure; Hypokalemia; Unspecified kidney failure - acute on chronic; Other chest pain; Urinary tract infection, site not specified. Bed requested for Intensive Care Unit. Status is Inpatient Admission. Condition is Fair. Problem is new. Symptoms have improved. em 12/05 08:02 08:02 [facility] ordered. EDMS EDMS 08:02 08:02 [facility] ordered. EDFL EDMS 13:35 07/09 20:48 12/04/2019 21:47 Hospitalization Ordered by Heri Abad for Inpatient ja1 Admission. Preliminary diagnosis is Unspecified combined systolic (congestive) and diastolic (congestive) heart failure; Hypokalemia; Unspecified kidney failure - acute on chronic; Other chest pain; Urinary tract infection, site not specified. Bed requested for [facility] ER HOLD. Status is Inpatient Admission. Condition is Fair. Problem is new. Symptoms have improved. cg 12/05 15:21 13:35 12/04/2019 21:47 Hospitalization Ordered by Heri Abad for Inpatient bp Admission. Preliminary diagnosis is Unspecified combined systolic (congestive) and diastolic (congestive) heart failure; Hypokalemia; Unspecified kidney failure - acute on chronic; Other chest pain; Urinary tract infection, site not specified. Bed requested for Telemetry/MedSurg (Inpatient). Status is Inpatient Admission. Condition is Fair. Problem is new. Symptoms have improved. ja1
--- NOTE | 2019-12-04 23:14 | ER ---
Nurse's Notes [facility] Name: Kimmy Perez Age: 74 yrs Sex: Female : 1945 Arrival Date: 12/04/2019 Time: 18:23 Bed 14 Private MD: Diagnosis: Unspecified combined systolic (congestive) and diastolic (congestive) heart failure;Hypokalemia;Unspecified kidney failure-acute on chronic;Other chest pain;Urinary tract infection, site not specified Presentation: 12/03 18:24 Chief complaint: EMS states: Intermittent chest pain and SOB x 24 hours, has taken ph tramadol and nitro x 3 w/ no relief, hx of A-fib, 12 lead showed Afib w/ rate 100-115, BP 111/74, 18 G RAC, 25 mcg fentanyl given, pt recently admitted for similar complaint, taken off of Digoxin and blood thinner switched from Xarelto to Eliquis. Coronavirus screen: Patient denies a cough. Patient reports shortness of breath or difficulty breathing. Patient denies measured and/or subjective temperature greater than 100.4F prior to today's visit. Patient denies travel on a cruise ship or to a country the [facility] currently lists as an affected area. Patient denies contact with known and/or suspected case of COVID-19. Ebola Screen: No symptoms or risks identified at this time. Risk Assessment: Do you want to hurt yourself or someone else? Patient reports no desire to harm self or others. Onset of symptoms was December 04, 2019. 18:24 Method Of Arrival: Ambulatory ph 18:57 Initial Sepsis Screen: Does the patient meet any 2 criteria? HR > 90 bpm. No. Patient's ph initial sepsis screen is negative. Does the patient have a suspected source of infection? No. Patient's initial sepsis screen is negative. 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 - Social history:: Smoking status: Patient denies any tobacco usage or history of. - Family history:: not pertinent. Screenin:11 Abuse screen: Denies threats or abuse. Nutritional screening: No deficits noted. ea Tuberculosis screening: No symptoms or risk factors identified. Fall Risk IV access (20 points). Assessment: 19:50 General: Appears uncomfortable, Behavior is appropriate for age. Pain: Complains of ea pain in epigastric area Pain does not radiate. Neuro: Level of Consciousness is awake, alert, obeys commands, Oriented to person, place, time. Cardiovascular: Patient's skin is warm and dry. Respiratory: Airway is patent Respiratory effort is even, unlabored, Respiratory pattern is regular, symmetrical. Derm: Skin is normal. 20:30 Reassessment: Patient and/or family updated on plan of care and expected duration. Pain ea level reassessed. Patient is alert, oriented x 3, equal unlabored respirations, skin warm/dry/pink. 21:30 Reassessment: Patient and/or family updated on plan of care and expected duration. Pain ea level reassessed. Patient is alert, oriented x 3, equal unlabored respirations, skin warm/dry/pink. 22:30 Reassessment: Patient and/or family updated on plan of care and expected duration. Pain ea level reassessed. Patient is alert, oriented x 3, equal unlabored respirations, skin warm/dry/pink. 23:30 Reassessment: Patient and/or family updated on plan of care and expected duration. Pain ea level reassessed. Patient is alert, oriented x 3, equal unlabored respirations, skin warm/dry/pink. 12/05 07:00 Reassessment: RECD REPORT FROM LORENZO BENNETT. 74YO WF P/W CHEST PAIN, ADMIT IN PROCESS. PT bp ON ER HOLD PENDING COVID RESULT. 13:55 Reassessment: REPORT TO YOVANY BENNETT FOR RM 225. bp Vital Signs: 12/03 18:57 BP 105 / 90; Pulse 104; Resp 18; Temp 97.9; Pulse Ox 100% on R/A; ph 20:30 BP 90 / 57; Pulse 86; Resp 18; Pulse Ox 98% on R/A; ea 22:30 BP 109 / 97; Pulse 99; Resp 19; Pulse Ox 93% on R/A; ea 23:30 BP 104 / 78; Pulse 86; Resp 18; Pulse Ox 93% ; ea 12/04 00:00 BP 105 / 92; Pulse 86; Resp 19; Pulse Ox 98% on R/A; ea 02:00 BP 110 / 78; Pulse 84; Resp 20; Pulse Ox 94% on R/A; ea 04:00 BP 115 / 96; Pulse 78; Resp 20; Pulse Ox 97% ; ea ED Course: 12/03 18:23 Patient arrived in ED. ph 18:31 Arm band placed on Patient placed in an exam room, on a stretcher, on cafeteria monitor, ph on pulse oximetry. 18:57 Triage completed. ph 19:11 Brian Osborne MD is Attending Physician. regla 19:18 Patient has correct armband on for positive identification. Bed in low position. Call ea light in reach. library monitor on. Pulse ox on. NIBP on. 19:51 Nadira Nicole, SABRINA is Primary Nurse. ea 19:58 XRAY Chest (1 view) In Process Unspecified. EDMS 21:12 Patient maintains SpO2 saturation greater than 95% on room air. ea 21:44 Heri Abad is Hospitalizing Provider. [facility] 12/04 02:03 No provider procedures requiring assistance completed. Patient admitted, IV remains in ea place. Administered Medications: Discontinued: NS 0.9% 1000 ml IV at 125 ml/hr continuous 12/03 20:15 Drug: NS 0.9% 1000 ml Route: IV; Rate: 125 ml/hr; Site: right antecubital; ea 20:16 Drug: fentaNYL (PF) 25 mcg {Note: RASS 0.} Route: IVP; Site: right antecubital; ea 21:30 Follow up: Response: No adverse reaction ea 20:16 Drug: Zofran (Ondansetron) 4 mg Route: IVP; Site: right antecubital; ea 20:30 Follow up: Response: No adverse reaction ea 22:27 Drug: Mucomyst - Acetylcysteine 600 mg Route: PO; ea 23:00 Follow up: Response: No adverse reaction ea 22:38 Drug: Xopenex 1.25 mg Route: Inhalation; ea 22:38 Drug: AtroVENT Aerosol 0.5 mg Route: Inhalation; ea 12/04 00:36 Drug: Rocephin 1 grams Route: IV; Rate: per protocol; Site: right antecubital; ea 01:00 Follow up: Response: No adverse reaction; IV Status: Completed infusion ea 04:00 Drug: morphine 2 mg {Note: as ordered by for admission in [facility].} Route: sg IVP; Site: right antecubital; 04:56 Follow up: Response: No adverse reaction ea Outcome: 12/03 21:47 Decision to Hospitalize by Provider. regla 12/04 02:03 Admitted to ER Hold. Please see [facility] for further documentation. ea Condition: stable Instructed on the need for admit. 12/05 15:21 Patient left the ED. bp Signatures: Dispatcher [employer] EDMS Dajuan Juarez RN RN Brian Yepez MD MD cha Hall, Patricia, RN RN ph Antunez, Elena, RN RN ea Peltier, Brian, RN RN bp
[2019-12-05] MEDS ORDERED: CEFTRIAXONE/SWI 1gm 1 GM/10 ML SYR ONE (00:28)
[2019-12-05] MEDS ORDERED: MORPHINE 2 MG/ML SYR ONE ×2 (03:51→08:27)
[2019-12-05] MEDS ORDERED: ALBUTEROL 2.5 MG/3 ML NEB SOL NEB PRN (06:58)
[2019-12-05] MEDS ORDERED: MORPHINE 2 MG/ML SYR IV PRN (06:58)
[2019-12-05 07:52] LABS: Absolute Lymphocytes (CBC) 1.3 K/uL (0.7-4.9); Basophils % 0.7 % (0-1.3); Hematocrit 43.6 % (36.0-45.0); Lymphocytes % 19.7 % (15.3-44.8); MPV 9.2 fL (7.6-11.3); RBC Red Blood Cell Count 4.69 M/uL (3.86-4.86)
[2019-12-05 08:12] LABS: Albumin 3.4 g/dL (3.4-5.0); Bilirubin Total 1.3 mg/dL (0.2-1.0); Magnesium 2.4 mg/dL (1.8-2.4); Phosphorus 6.1 mg/dL (2.5-4.9); Potassium 4.1 mmol/L (3.5-5.1); Protein, Total 6.6 g/dL (6.4-8.2)
--- NOTE | 2019-12-05 08:23 | P.CNS ---
Date of Consult: 12/05/19 Reason for Consult: BECCA Requesting Physician: benigno hernandez Chief Complaint: Abdominal pain History of Present Illness: 74-year-old woman with a history of chronic atrial fibrillation, tracheostomy, congestive heart presented emergency department with a complaint of right upper quadrant pain. Patient has been scheduled for cardiac ablation for rapid heart rate atrial fibrillation. She was here 2 weeks ago for nonspecific symptom, seen by cardiology and discharged to home. Her workup in the ED has been unremarkable compared to previous findings, except that her systolic blood pressure was in the 80s in the ED. She was in AFib with RVR at a rate of [address] angiogram was done which was negative for aneurysm or dissection, reported cardiomegaly and left renal cyst. She has significant tenderness in the right upper quadrant, CT scan report normal looking liver. She has a history of cholecystectomy. Patient is placed under observation for further evaluation. 19:56 This 74 yrs old Female presents to ER via Ambulatory with complaints of Chest regla Pain. 19:56 The patient or guardian reports chest pain that is located primarily in the substernal regla area, anterior chest wall, bilaterally. Onset: 1 day(s) ago. Allergies NSAIDS (Non-Steroidal Anti-Inflamma Allergy (Mild, Verified 10/25/19 12:25) Hives/Rash nitrofurantoin [From Macrobid] Adverse Reaction (Mild, Verified 10/25/19 12:25) palpitations Home medications list reviewed: Yes Home Medications: Levothyroxine Sodium [Levothroid] 100 mcg PO DAILY 03/16/12 Furosemide [Lasix] 20 mg PO DAILY PRN #30 tablet 02/19/18 Amiodarone HCl [Cordarone*] 1 tab PO BID 11/24/19 Amiodarone HCl [Cordarone*] 200 mg PO DAILY 30 Days #30 tab 11/24/19 Apixaban [Eliquis] 2.5 mg PO BID #60 tablet 11/24/19 Carvedilol [Coreg] 6.25 mg PO BID 11/24/19 Nitroglycerin [Nitrostat*] 0.4 mg SL UD PRN #30 tab 11/24/19 Pantoprazole Sodium [Protonix] 40 mg PO DAILY 30 Days #30 karla. 11/24/19 traMADol HCL [Ultram*] 50 mg PO Q6H PRN #20 tab 11/24/19 - Past Medical/Surgical History Diabetic: No -: Atrial fibrillation -: Throat CA -: CHF -: Throat Cancer -: Deaf/mute -: Laryngectomy -: Bilateral knee surgery -: Cholecystectomy -: valente fibroid mass removal on her breast - Family History Father Medical History: Heart disease, Cancer Mother Medical History: Heart disease, Cancer - Social History Smoking Status: Never smoker Alcohol use: No CD- Drugs: No Caffeine use: Yes Review of Systems 10-point ROS is otherwise unremarkable General: Weakness, Malaise Gastrointestinal: Abdominal Pain Neurological: Weakness Physical Examination Temp Pulse Resp BP Pulse Ox 78 18 115/96 H 97 12/05/19 04:00 12/05/19 04:00 12/05/19 04:00 12/05/19 04:00 General: Cooperative, Mild distress HEENT: Atraumatic Neck: Supple Respiratory: Rhonchi/gurgles Cardiovascular: No edema, Regular rate/rhythm Gastrointestinal: Soft and benign, Non-distended Musculoskeletal: No clubbing, No contractures Integumentary: No rashes, No cyanosis Neurological: Abnormal speech (Trach) Laboratory Data (last 24 hrs) 12/04/19 19:45: Lipase 109 12/04/19 19:43: PT 31.4 H, INR 2.71 12/04/19 19:43: WBC 5.2 D, Hgb 14.4, Hct 43.7, Plt Count 261 12/04/19 19:43: Sodium 135 L, Potassium 3.4 L, BUN 19 H, Creatinine 1.49 H, Glucose 167 H, Magnesium 2.1 D, Total Bilirubin 2.0 H, AST 59 H, ALT 71, Alkaline Phosphatase 97 Imagings Data: EXAM DESCRIPTION: RAD - Chest Single View - 12/04/2019 7:57 pm CLINICAL HISTORY: CHEST PAIN, shortness of breath COMPARISON: November 22 portable chest TECHNIQUE: AP portable chest image was obtained 12/04/2019 7:57 pm . FINDINGS: No peripheral mass consolidation. Lung markings less pronounced than seen previously. Cardiomegaly is present. Vasculature is mildly prominent. No measurable pleural effusion and no pneumothorax. No acute bony abnormality seen. No acute aortic findings suspected. IMPRESSION: Cardiomegaly similar to comparison. Vasculature and lung markings are less prominent than seen previously. No significant failure or volume overload at this time. EXAM DESCRIPTION: CT - Angio Aorta For Dissection - 12/04/2019 8:48 pm CLINICAL HISTORY: Chest pain;Abdominal distention COMPARISON: Portable chest same date, CT study February 2012 TECHNIQUE: Dynamically enhanced 3 mm thick images of the chest, abdomen, and upper pelvis were obtained during administration of approximately 150mL Isovue 370 IV contrast. Sagittal and coronal reconstruction images were generated using MIP and reviewed. Exam utilizes a protocol to evaluate entire course of the aorta. All CT scans are performed using dose optimization technique as appropriate and may include automated exposure control or mA/KV adjustment according to patient size. FINDINGS: Aorta is normal in diameter with no dissection or other acute aortic findings. Reconstruction images show no significant findings. No pulmonary artery acute finding. Cardiomegaly is present primarily a biatrial enlargement process. Left ventricle is prominent as well. No pericardial effusion. No peripheral mass or consolidation. No measurable ground-glass opacification. Interstitial pattern is not clearly outside of normal range. Trace amounts of pleural fluid present. No pleural thickening or pleural based mass. No pneumothorax. Small reactive type hilar lymph nodes are present. No mediastinal lymphadenopathy. No chest wall mass or abnormal axillary lymphadenopathy. Mild narrowing of the origin of the celiac artery. No narrowing of the superior mesenteric artery. MATT is patent. No renal artery abnormality seen. The liver, spleen and pancreas show no suspicious findings. No renal parenchymal abnormality seen. Medial to the left kidney there is a 4 centimeter oval fluid attenuation mass. Etiology is uncertain. This was present and measured 3.3 cm in 2012. This is not seen as a significant finding. No suspicious mass or abnormal lymphadenopathy. No free air or pneumatosis. Small amount of free fluid is present in the dependent portion of the pelvis. No urinary bladder abnormality. Uterus and ovaries show no suspicious findings for age. IMPRESSION: Negative CT scan of the aorta. Patient has significant cardiomegaly new from 2012. No pericardial effusion. Mil d failure is possible. No significant degree of failure or volume overload. EXAM DESCRIPTION: US - Liver Only - 12/05/2019 9:05 am CLINICAL HISTORY: Right upper pain COMPARISON: None FINDINGS: The liver has a normal echotexture. Hepatopetal flow. A lesion is not visualized. The spleen measures 8 centimeters. Cholecystectomy IMPRESSION: Unremarkable liver ultrasound Unremarkable ultrasound spleen EXAM DESCRIPTION: US - Renal Ultrasound-Complete - 12/05/2019 9:05 am CLINICAL HISTORY: . Renal mass with chronic renal disease COMPARISON: December 04, 2019 cat scan FINDINGS: The right kidney measures 9 centimeters with a mildly increased echotexture The left kidney measures 9 centimeters with a mildly increased echotexture. 4 centimeter cyst abuts medial aspect of the left kidney Hydronephrosis is not seen. No gross abnormality of bladder IMPRESSION: Mildly increased renal echotexture consistent with parenchymal disease 4 centimeter cyst which abuts the medial aspect of the left kidney is likely benign EXAM DESCRIPTION: RAD - Abdomen 1 View (KUB) - 12/05/2019 6:54 pm CLINICAL HISTORY: abdominal pain Pain COMPARISON: No comparisons FINDINGS: The bowel gas pattern is non-obstructive. No evidence of free air or pneumatosis. No suspicious calcifications. No significant bony findings. Cholecystectomy clips. IMPRESSION: Negative examination. Conclusions/Impression: A/ BECCA Hyponatremia Hypokalemia Hypocalcemia HyperPO4 CKD III Diastolic CHF, chronic. Hypo/ Hyperglycemia Hypothyroidism, uncontrolled. Acute cystitis P/ Continue current POC and Medications. Continue IVF. Repletes lytes prn. Follow up urine cx. Check echocardiogram. No NSAIDs. AM labs. Daily weight. Thank you kindly for the consultation. Case reviewed with the family at the bedside. Case reviewed with Dr. Hernandez
[2019-12-05] MEDS ORDERED: ALBUTEROL 2.5 MG/3 ML NEB SOL ONE (08:28)
[2019-12-05 08:31] LABS: Thyroid Stimulating Hormone 7.24 uIU/mL (0.360-3.740)
[2019-12-05] MEDS ORDERED: PNEUMOCOCCAL VACCINE 0.5 ML IMVAC ONE ×2 (09:00→09:57)
--- NOTE | 2019-12-05 09:20 | P.PN ---
Subjective Date of Service: 12/05/19 Chief Complaint: Abdominal pain Patient complaining of abdominal pain. She is also complaining of 4 days of constipation. Her blood pressure readings have improved. Physical Examination - Vital Signs Blood Pressure: 115/96 Pulse: 78 Respirations: 20 Pulse Ox (%): 97 - Physical Exam General: Alert, In no apparent distress HEENT: Mucous membr. moist/pink Neck: Supple, JVD not distended Respiratory: Clear to auscultation bilaterally, Normal air movement Cardiovascular: No edema, Regular rate/rhythm, Normal S1 S2 Gastrointestinal: Normal bowel sounds, Soft and benign, Tenderness (RUQ) Musculoskeletal: No swelling, No erythema Integumentary: No rashes Neurological: Normal strength at 5/5 x4 extr - Studies Laboratory Data (last 24 hrs) 12/04/19 19:45: Lipase 109 12/04/19 19:43: PT 31.4 H, INR 2.71 12/04/19 19:43: WBC 5.2 D, Hgb 14.4, Hct 43.7, Plt Count 261 12/04/19 19:43: Sodium 135 L, Potassium 3.4 L, BUN 19 H, Creatinine 1.49 H, Glucose 167 H, Magnesium 2.1 D, Total Bilirubin 2.0 H, AST 59 H, ALT 71, Alkaline Phosphatase 97 Assessment And Plan - Current Problems (Diagnosis) (1) Abdominal pain Current Visit: Yes Status: Acute (2) Atrial fibrillation with rapid ventricular response Onset Date: 02/12/18 Current Visit: No Status: Acute (3) Hypotension Current Visit: Yes Status: Acute (4) Functional constipation Current Visit: Yes Status: Acute - Plan Not sure if patient's abdominal pain is secondary to ischemic bowel from atrial fibrillation and hypotension. Abdominal pain could also be secondary to constipation or stercoral Colitis RUQ sono is pending. Will treat constipation with miralax and fleet enema. Senna bid Continue home medications for atrial fibrillation. Continue anticoagulation. Hold Lasix for now given low BP.
--- NOTE | 2019-12-05 09:20 | RAD REPORT ---
EXAM DESCRIPTION: US - Renal Ultrasound-Complete - 12/05/2019 9:05 am CLINICAL HISTORY: . Renal mass with chronic renal disease COMPARISON: December 04, 2019 cat scan FINDINGS: The right kidney measures 9 centimeters with a mildly increased echotexture The left kidney measures 9 centimeters with a mildly increased echotexture. 4 centimeter cyst abuts m edial aspect of the left kidney Hydronephrosis is not seen. No gross abnormality of bladder IMPRESSION: Mildly increased renal echotexture consistent with parenchymal disease 4 centimeter cyst which abuts the medial aspect of the left kidney is likely benign
[2019-12-05] MEDS ORDERED: FLEET ENEMA ADULT PR ONE ×4 (09:21→17:00)
--- NOTE | 2019-12-05 09:22 | RAD REPORT ---
EXAM DESCRIPTION: US - Liver Only - 12/05/2019 9:05 am CLINICAL HISTORY: Right upper pain COMPARISON: None FINDINGS: The liver has a normal echotexture. Hepatopetal flow. A lesion is not visualized. The spleen measures 8 centimeters. Cholecystectomy IMPRESSION: Unremarkable liver ultrasound Unremarkable ultrasound spleen
[2019-12-05] MEDS ORDERED: POLYETHYL GLY 3350 17 GM/DOSE ONE ×2 (12:29→21:16)
[2019-12-05] MEDS ORDERED: D50W 25 GM/50 ML SYRINGE/VIAL IV ONE (18:26)
[2019-12-05] MEDS ORDERED: TRAMADOL HCL 50 MG TAB PO PRN (18:30)
[2019-12-05] MEDS ORDERED: GLUCAGON 1 MG/VIAL IM PRN (18:31)
[2019-12-05] MEDS ORDERED: D50W 25 GM/50 ML SYRINGE/VIAL IV PRN (18:31)
[2019-12-05] MEDS ORDERED: NA CHLORIDE 0.9% 1,000 ML ONE (18:44)
--- NOTE | 2019-12-05 18:59 | RAD REPORT ---
EXAM DESCRIPTION: RAD - Abdomen 1 View (KUB) - 12/05/2019 6:54 pm CLINICAL HISTORY: abdominal pain Pain COMPARISON: No comparisons FINDINGS: The bowel gas pattern is non-obstructive. No evidence of free air or pneumatosis. No suspi cious calcifications. No significant bony findings. Cholecystectomy clips. IMPRESSION: Negative examination.
[2019-12-05] MEDS: D5 0.9 NS 1,000 ML IV SCH (19:00)
[2019-12-05] MEDS ORDERED: POLYETHYL GLY 3350 17 GM/DOSE PO SCH (21:00)
[2019-12-05] MEDS ORDERED: AMIODARONE HCL 200 MG TAB PO SCH (21:00)
[2019-12-05] MEDS: INSULIN -REGULAR HUMAN 50 UNIT/0.5 ML ML SQ SCH (21:00)
[2019-12-05] MEDS ORDERED: carvediloL 6.25 MG TAB ONE (21:14)
[2019-12-05] MEDS ORDERED: APIXABAN 2.5 MG TABLET ONE (21:23)
[2019-12-05 22:06] LABS: Urine Blood TRACE (NEG); Urine Glucose NEGATIVE (NEG); Urine Protein NEGATIVE (NEG)
[2019-12-06] MEDS: carvediloL 6.25 MG TAB PO SCH ×3 (03:00→22:16)
[2019-12-06] MEDS: APIXABAN 2.5 MG TABLET PO SCH ×3 (03:00→22:17)
[2019-12-06] MEDS ORDERED: LEVOTHYROXINE SOD 0.1 MG TAB PO SCH (06:30)
[2019-12-06] MEDS: CEFTRIAXONE/SWI 1gm 1 GM/10 ML SYR IV SCH (07:00)
[2019-12-06] MEDS: INSULIN -REGULAR HUMAN 50 UNIT/0.5 ML ML SQ SCH ×4 (07:30→21:00)
[2019-12-06 07:53] LABS: Absolute Lymphocytes (CBC) 0.6 K/uL (0.7-4.9); Basophils % 0.4 % (0-1.3); Hematocrit 42.4 % (36.0-45.0); Lymphocytes % 4.4 % (15.3-44.8); MPV 9.6 fL (7.6-11.3); RBC Red Blood Cell Count 4.53 M/uL (3.86-4.86)
[2019-12-06 08:06] LABS: Potassium 3.9 mmol/L (3.5-5.1)
[2019-12-06] MEDS: D5 0.9 NS 1,000 ML IV SCH (08:20)
[2019-12-06] MEDS: PANTOPRAZOLE 40MG TABLET PO SCH (09:00)
[2019-12-06] MEDS ORDERED: AMIODARONE HCL 200 MG TAB PO SCH (09:00)
--- NOTE | 2019-12-06 09:01 | P.PN ---
Subjective Date of Service: 12/06/19 Chief Complaint: Abdominal pain Patient states she is feeling better today. She is awake and alert. No more hypoglycemia episodes. She denies abdominal pain. Her blood pressure readings have improved. Physical Examination - Vital Signs Temperature: 97.6 F Blood Pressure: 107/63 Pulse: 85 Respirations: 12 Pulse Ox (%): 98 - Physical Exam General: Alert, In no apparent distress, Oriented x3 HEENT: Mucous membr. moist/pink Respiratory: Clear to auscultation bilaterally, Normal air movement Cardiovascular: No edema, Regular rate/rhythm, Normal S1 S2 Capillary refill: <2 Seconds Gastrointestinal: Normal bowel sounds, Soft and benign, Non-distended, No tenderness Musculoskeletal: No swelling, No erythema Integumentary: No rashes Neurological: Normal strength at 5/5 x4 extr, Cranial nerves 3-12 intact - Studies Laboratory Data (last 24 hrs) 12/06/19 07:40: Sodium 133 L, Potassium 3.9, BUN 29 H, Creatinine 2.05 H, Glucose 140 H 12/06/19 07:40: WBC 13.8 H D, Hgb 14.1, Hct 42.4, Plt Count 265 Microbiology Data (last 24 hrs): 12/05/19 10:15 Nasopharnyx Coronavirus COVID-19 PCR - Final Assessment And Plan - Current Problems (Diagnosis) (1) Abdominal pain Current Visit: Yes Status: Acute (2) Atrial fibrillation with rapid ventricular response Onset Date: 02/12/18 Current Visit: No Status: Acute (3) Hypotension Current Visit: Yes Status: Acute (4) Functional constipation Current Visit: Yes Status: Acute - Plan Abdominal pain has improved. Abdominal pain could also be secondary to constipation or stercoral Colitis RUQ sono is unremarkable. Renal ultrasound unremarkable. Continue stool softeners Continue home medications for atrial fibrillation. Continue anticoagulation. Hold Lasix given dehydration. Slow IV hydration with dextrose. Monitor for 1 more day and possible D/C in a.m. Nephrology to follow.
[2019-12-06] MEDS ORDERED: carvediloL 6.25 MG TAB ONE ×2 (10:20→22:17)
[2019-12-06] MEDS ORDERED: D5 0.9 NS 1,000 ML IV ONE (10:20)
[2019-12-06] MEDS ORDERED: CEFTRIAXONE/SWI 1gm 1 GM/10 ML SYR ONE (10:20)
[2019-12-06] MEDS ORDERED: PANTOPRAZOLE 40 MG INJ ONE (10:20)
[2019-12-06 10:36] LABS: Blood Morphology Comment NOT SEEN (NOT SEEN); Platelet Estimate ADEQ; Urine White Blood Cell Casts OK
--- NOTE | 2019-12-06 13:08 | ECHO ---
HEIGHT: 5 ft 5 in WEIGHT: 140 lb 0 oz DATE OF STUDY: 12/05/[address]: Karthik Potts DO 2-DIMENSIONAL: YES M.MODE: YES DOPPLER: YES COLOR FLOW: YES TDS: NO PORTABLE: NO DEFINITY: NO BUBBLE STUDY: NO DIAGNOSIS: CONGESTIVE HEART FAILURE CARDIAC HISTORY: CATHERIZATION: NO SURGERY: NO PROSTHETIC VALVE: NO PACEMAKER: NO MEASUREMENTS (cm) DIASTOLIC (NORMALS) SYSTOLIC (NORMALS) IVSd 0.7 (0.6-1.2) LA Diam 3.9 (1.9-4.0) LVEF 17% LVIDd 5.8 (3.5-5.7) LVIDs 4.9 (2.0-3.5) %FS 8% LVPWd 0.9 (0.6-1.2) Ao Diam 2.7 (2.0-3.7) 2 DIMENSIONAL ASSESSMENT: RIGHT ATRIUM: ENLARGED LEFT ATRIUM: ENLARGED RIGHT VENTRICLE: NORMAL LEFT VENTRICLE: MILDLY DILATED TRICUSPID VALVE: MILD TRICUSPID REGURGITATION MITRAL VALVE: MILD TO MODERATE MITRAL REGURGITATION PULMONIC VALVE: MILD PULMONIC INSUFFICIENCY AORTIC VALVE: MILDLY CALCIFIED, NO AORTIC STENOSIS PERICARDIAL EFFUSION: AORTIC ROOT: LEFT VENTRICULAR WALL MOTION: SEVERE GLOBAL HYPOKINESIS. DOPPLER/COLOR FLOW: MILD TO MODERATE PULMONIC HYPERTENSION WITH RIGHT VENTRICULAR SYSTOLIC PRESSURE OF 40-45mmHg. COMMENTS: SEVERELY DEPRESSED LEFT VENTRICULAR EJECTION FRACTION 15-20%, MILDLY DILATED LEFT VENTRICLE. GLOBAL SEVERE HYPOKINESIS AT THE LEFT VENTRICLE. BI - ATRIAL ENLARGEMENT. MODERATE PULMONARY HYPERTENSION WITH RIGHT VENTRICULAR SYSTOLIC PRESSURE 40-45mmHg AND RIGHT ATRIAL PRESSURE IS GREATER THAN 20mmHg. ELEVATED FILLING PRESSURE. RESTRICTIVE DIASTOLOGY TECHNOLOGIST: LAZARA GHOSH
--- NOTE | 2019-12-06 19:20 | P.PN ---
Date of Service: 12/06/19 Vital Signs Temp Pulse Resp BP Pulse Ox 96.7 F L 88 18 103/60 99 12/06/19 16:00 12/06/19 16:00 12/06/19 16:00 12/06/19 16:00 12/06/19 16:00 Medications Albuterol Sulfate (Proventil 0.083% Neb Soln) 2.5 mg NEB Q6HP PRN PRN Reason: SHORTNESS OF BREATH Stop: 01/04/20 06:59 Apixaban (Eliquis) 2.5 mg PO BID [facility] Stop: 01/04/20 21:01 Last Admin: 12/06/19 09:00 Dose: 2.5 mg Documented by: Calcitriol (Rocaltrol) 0.5 mcg PO DAILY JAKE Stop: 01/06/20 09:01 Carvedilol (Coreg) 6.25 mg PO BID [facility] Stop: 01/04/20 21:01 Last Admin: 12/06/19 09:00 Dose: 6.25 mg Documented by: Cholecalciferol (Vitamin D 5,000 Iu Cap) 5,000 unit PO DAILY [facility] Stop: 01/06/20 09:01 Dextrose (Dextrose 50% Syringe/Vial) 12.5 gm IV PRN PRN; Protocol PRN Reason: HYPOGLYCEMIA Stop: 01/04/20 18:32 Last Admin: 12/05/19 18:42 Dose: 12.5 gm Documented by: Docusate Sodium (Colace Cap) 100 mg PO BID [facility] Stop: 01/05/20 21:01 Glucagon (Glucagen) 1 mg IM 1X PRN; Protocol PRN Reason: HYPOGLYCEMIA Stop: 01/04/20 18:32 Ceftriaxone Sodium/Sodium Chloride (Rocephin 1 Gm/10 Ml Swi Ivp) 1 gm in 10 mls @ 120 mls/hr IV Q24H [facility]; Protocol Stop: 01/05/20 07:01 Last Admin: 12/06/19 07:00 Dose: 10 mls Documented by: Insulin Human Regular (Novolin -R) 0 unit SQ ACHS [facility]; Protocol Stop: 01/04/20 21:01 Last Admin: 12/06/19 16:30 Dose: Not Given Documented by: Levothyroxine Sodium (Synthroid) 0.112 mg PO DAILYAC [facility] Stop: 08/10/20 06:31 Morphine Sulfate (Morphine Sulfate) 2 mg IV Q6H PRN PRN Reason: Pain scale 5-7 (Moderate) Stop: 01/04/20 06:59 Last Admin: 12/05/19 08:25 Dose: 2 mg Documented by: Pantoprazole Sodium (Protonix Tab) 40 mg PO DAILY [facility]; Protocol Stop: 01/05/20 09:01 Last Admin: 12/06/19 09:00 Dose: 40 mg Documented by: Sodium Chloride (Normal Saline Flush) 10 ml IV BID [facility] Stop: 01/04/20 09:01 Last Admin: 12/06/19 09:00 Dose: 10 ml Documented by: Tramadol HCl (Ultram) 50 mg PO Q6H PRN PRN Reason: Pain scale 5-7 (Moderate) Stop: 01/04/20 18:31 Lab Results (last 24 hrs) 12/06/19 07:40: Sodium 133 L, Potassium 3.9, Chloride 93 L, Carbon Dioxide 27, BUN 29 H, Creatinine 2.05 H, Estimated GFR 24 L, Glucose 140 H, Calcium 7.9 L 12/06/19 07:40: WBC 13.8 H D, RBC 4.53, Hgb 14.1, Hct 42.4, MCV 93.7, MCH 31.2, MCHC 33.3, RDW 13.6, Plt Count 265, MPV 9.6, Neutrophils % 85.4 H, Lymphocytes % 4.4 L, Monocytes % 9.8, Eosinophils % 0.0, Basophils % 0.4, Absolute Neutrophils 11.8 H, Absolute Lymphocytes 0.6 L, Absolute Monocytes 1.4 H, Absolute Eosinophils 0.0, Absolute Basophils 0.1, Morphology Comment Not seen 12/05/19 20:31: POC Glucose 157 H 12/04/19 23:18: Urine pH 5.0, Ur Specific [place] 1.010, Glucose (UA)(Auto) Negative, Urine Ketones Negative, Urine Blood Trace H, Urine Nitrite Positive H, Ur Leukocyte Esterase Trace H, Urine Total Protein Negative Microbiology Results 12/04/19 23:10 Clean Catch Urine [place] Count - Preliminary >100,000 CFU/ML. 12/04/19 23:10 Clean Catch Urine - Preliminary 12/05/19 10:15 Nasopharnyx Coronavirus COVID-19 PCR - Final Assessment/ Plan: Nephrology CPS stable without CP or SOB. Feeling better today. Reports dark urine improved from yesterday. Sore throat. No acute events overnight. Vitals, medications, blood work and imaging reviewed in the chart. NAD. MMM. Neck supple. CTA. RRR. Soft Abd. No C/C/E. No rash. AAO. Normal Speech. General: Cooperative, Mild distress HEENT: Atraumatic Neck: Supple Respiratory: Rhonchi/gurgles Cardiovascular: No edema, Regular rate/rhythm Gastrointestinal: Soft and benign, Non-distended Musculoskeletal: No clubbing, No contractures Integumentary: No rashes, No cyanosis Neurological: Abnormal speech (Trach) Laboratory Data (last 24 hrs) 12/04/19 19:45: Lipase 109 12/04/19 19:43: PT 31.4 H, INR 2.71 12/04/19 19:43: WBC 5.2 D, Hgb 14.4, Hct 43.7, Plt Count 261 12/04/19 19:43: Sodium 135 L, Potassium 3.4 L, BUN 19 H, Creatinine 1.49 H, Glucose 167 H, Magnesium 2.1 D, Total Bilirubin 2.0 H, AST 59 H, ALT 71, Alkaline Phosphatase 97 Imagings Data: EXAM DESCRIPTION: RAD - Chest Single View - 12/04/2019 7:57 pm CLINICAL HISTORY: CHEST PAIN, shortness of breath COMPARISON: November 22 portable chest TECHNIQUE: AP portable chest image was obtained 12/04/2019 7:57 pm . FINDINGS: No peripheral mass consolidation. Lung markings less pronounced than seen previously. Cardiomegaly is present. Vasculature is mildly prominent. No measurable pleural effusion and no pneumothorax. No acute bony abnormality seen. No acute aortic findings suspected. IMPRESSION: Cardiomegaly similar to comparison. Vasculature and lung markings are less prominent than seen previously. No significant failure or volume overload at this time. EXAM DESCRIPTION: CT - Angio Aorta For Dissection - 12/04/2019 8:48 pm CLINICAL HISTORY: Chest pain;Abdominal distention COMPARISON: Portable chest same date, CT study February 2012 TECHNIQUE: Dynamically enhanced 3 mm thick images of the chest, abdomen, and upper pelvis were obtained during administration of approximately 150mL Isovue 370 IV contrast. Sagittal and coronal reconstruction images were generated using MIP and reviewed. Exam utilizes a protocol to evaluate entire course of the aorta. All CT scans are performed using dose optimization technique as appropriate and may include automated exposure control or mA/KV adjustment according to patient size. FINDINGS: Aorta is normal in diameter with no dissection or other acute aortic findings. Reconstruction images show no significant findings. No pulmonary artery acute finding. Cardiomegaly is present primarily a biatrial enlargement process. Left ventricle is prominent as well. No pericardial effusion. No peripheral mass or consolidation. No measurable ground-glass opacification. Interstitial pattern is not clearly outside of normal range. Trace amounts of pleural fluid present. No pleural thickening or pleural based mass. No pneumothorax. Small reactive type hilar lymph nodes are present. No mediastinal lymphadenopathy. No chest wall mass or abnormal axillary lymphadenopathy. Mild narrowing of the origin of the celiac artery. No narrowing of the superior mesenteric artery. MATT is patent. No renal artery abnormality seen. The liver, spleen and pancreas show no suspicious findings. No renal parenchymal abnormality seen. Medial to the left kidney there is a 4 centimeter oval fluid attenuation mass. Etiology is uncertain. This was present and measured 3.3 cm in 2012. This is not seen as a significant finding. No suspicious mass or abnormal lymphadenopathy. No free air or pneumatosis. Small amount of free fluid is present in the dependent portion of the pelvis. No urinary bladder abnormality. Uterus and ovaries show no suspicious findings for age. IMPRESSION: Negative CT scan of the aorta. Patient has significant cardiomegaly new from 2012. No pericardial effusion. Mild failure is possible. No significant degree of failure or volume overload. EXAM DESCRIPTION: US - Liver Only - 12/05/2019 9:05 am CLINICAL HISTORY: Right upper pain COMPARISON: None FINDINGS: The liver has a normal echotexture. Hepatopetal flow. A lesion is not visualized. The spleen measures 8 centimeters. Cholecystectomy IMPRESSION: Unremarkable liver ultrasound Unremarkable ultrasound spleen EXAM DESCRIPTION: US - Renal Ultrasound-Complete - 12/05/2019 9:05 am CLINICAL HISTORY: . Renal mass with chronic renal disease COMPARISON: December 04, 2019 cat scan FINDINGS: The right kidney measures 9 centimeters with a mildly increased echotexture The left kidney measures 9 centimeters with a mildly increased echotexture. 4 centimeter cyst abuts medial aspect of the left kidney Hydronephrosis is not seen. No gross abnormality of bladder IMPRESSION: Mildly increased renal echotexture consistent with parenchymal disease 4 centimeter cyst which abuts the medial aspect of the left kidney is likely benign EXAM DESCRIPTION: RAD - Abdomen 1 View (KUB) - 12/05/2019 6:54 pm CLINICAL HISTORY: abdominal pain Pain COMPARISON: No comparisons FINDINGS: The bowel gas pattern is non-obstructive. No evidence of free air or pneumatosis. No suspicious calcifications. No significant bony findings. Cholecystectomy clips. IMPRESSION: Negative examination. Conclusions/Impression: A/ BECCA worse in the setting of hypovolemia/ hypotension. Hyponatremia Hypokalemia Hypocalcemia HyperPO4 CKD III Systolic Diastolic CHF, chronic. Pulmonary HTN Hypo/ Hyperglycemia Hypothyroidism, uncontrolled. Acute cystitis P/ Continue current POC and Medications. Continue gentle IVF. Monitor volume status due to CHF. Repletes lytes prn. Continue abx.Follow up urine cx. Follow up with cardiology. No NSAIDs. AM labs. Daily weight.
[2019-12-06] MEDS ORDERED: CEPACOL LOZENGES PO PRN (19:23)
[2019-12-06] MEDS: DOCUSATE NA 100 MG CAP PO SCH (22:16)
[2019-12-06] MEDS ORDERED: APIXABAN 2.5 MG TABLET ONE (22:18)
[2019-12-07] MEDS ORDERED: LEVOTHYROXINE SOD 0.125 MG TAB ONE (05:56)
[2019-12-07] MEDS ORDERED: LEVOTHYROXINE SOD 0.112 MG TAB ONE (06:00)
[2019-12-07] MEDS: LEVOTHYROXINE SOD 0.112 MG TAB PO SCH (06:08)
[2019-12-07 06:59] LABS: Absolute Lymphocytes (CBC) 0.9 K/uL (0.7-4.9); Basophils % 0.3 % (0-1.3); Hematocrit 39.6 % (36.0-45.0); Lymphocytes % 8.5 % (15.3-44.8); MPV 9.7 fL (7.6-11.3); RBC Red Blood Cell Count 4.27 M/uL (3.86-4.86)
[2019-12-07] MEDS: CEFTRIAXONE/SWI 1gm 1 GM/10 ML SYR IV SCH (07:00)
[2019-12-07] MEDS: INSULIN -REGULAR HUMAN 50 UNIT/0.5 ML ML SQ SCH ×4 (07:30→21:00)
[2019-12-07 07:38] LABS: Albumin 3.3 g/dL (3.4-5.0); Bilirubin Direct 0.5 mg/dL (0-0.2); Bilirubin Total 0.9 mg/dL (0.2-1.0); Phosphorus 3.5 mg/dL (2.5-4.9); Potassium 4.2 mmol/L (3.5-5.1); Protein, Total 6.1 g/dL (6.4-8.2); Uric Acid 10.6 mg/dL (2.6-6.0)
[2019-12-07] MEDS: DOCUSATE NA 100 MG CAP PO SCH ×2 (08:47→21:18)
[2019-12-07] MEDS: CALCITROL 0.25 MCG CAP PO SCH (08:47)
[2019-12-07] MEDS: VITAMIN D 5,000 UNIT CAP PO SCH (08:47)
[2019-12-07] MEDS: carvediloL 6.25 MG TAB PO SCH ×2 (08:48→21:00)
[2019-12-07] MEDS ORDERED: CEFTRIAXONE/SWI 1gm 1 GM/10 ML SYR IVP SCH (09:00)
[2019-12-07] MEDS: APIXABAN 2.5 MG TABLET PO SCH (09:53)
[2019-12-07] MEDS: PANTOPRAZOLE 40MG TABLET PO SCH (09:53)
--- NOTE | 2019-12-07 16:46 | P.PN ---
Subjective Date of Service: 12/07/19 Chief Complaint: Abdominal pain Subjective: Improving (Patient feels better today. Still reports some compliance after eating. No significant nausea vomiting.) Physical Examination - Vital Signs Temperature: 98.7 F Blood Pressure: 92/56 Pulse: 85 Respirations: 16 Pulse Ox (%): 93 - Physical Exam General: Alert, In no apparent distress, Cooperative HEENT: Atraumatic Neck: Supple, Other (Tracheostomy site clean.) Respiratory: Clear to auscultation bilaterally, Normal air movement Cardiovascular: Irregular heart rate/rhythm (AFib rate controlled) Gastrointestinal: Normal bowel sounds, No ascites, No tenderness, No masses, No rebound, No guarding Neurological: Normal strength at 5/5 x4 extr, Normal tone, Normal affect - Studies Microbiology Data (last 24 hrs): 12/04/19 23:10 Clean Catch Urine [place] Count - Final >100,000 CFU/ML. 12/04/19 23:10 Clean Catch Urine - Final Escherichia Coli Medications List Reviewed: Yes Assessment & Plan Discharge Plan: Home Plan to discharge in: 24 Hours Physician Review Additional Text: Impression: Abdominal pain suspect related to UTI, urine culture positive for E coli Hypotension likely from volume depletion related to recent diarrhea Atrial fibrillation with RVR on chronic anti coagulation therapy Acute on chronic systolic CHF with ejection fraction 15-20% complicated with moderate pulmonary hypertension, global severe hypokinesis with by atrial enlargement Acute on Chronic renal disease stage 3 Hypothyroidism Elevated liver function likely related to amiodarone. Plan: Abdominal pain suspect related to UTI, urine culture positive for E coli: Will transition to Augmentin. UTI prevention address. Will advance diet. Patient with other multiple medical problems. Case discussed with nephrology and cardiology. Patient has to cancel her upcoming visit with electrophysiology for cardiac ablation due to UTI. This will need to be rescheduled. Patient previously with heart catheterization perform showing normal coronaries. Patient has significant systolic CHF with ejection fraction around 15-20%. Continue fluid restriction. Anticipate improvement over the next 24 hr. Possible discharge tomorrow. Hypotension likely from volume depletion related to recent diarrhea: Patient had to be given IV fluids yesterday. Will need to be careful with IV fluids related to her CHF. Will monitor closely. Will decrease carvedilol. Hold carvedilol if needed. Atrial fibrillation with RVR on chronic anti coagulation therapy: Continue anti coagulation therapy. Will adjust carvedilol accordingly. Amiodarone discontinued due to elevated liver function. Acute on chronic systolic CHF with ejection fraction 15-20% complicated with moderate pulmonary hypertension, global severe hypokinesis with by atrial enlargement: Patient had heart catheterization recently. Medical management was addressed in detail. Continue fluid restriction if possible. May require diuresis but will monitor this closely. Patient would benefit with Entresto and beta-maura therapy. Patient on carvedilol. Will adjust accordingly. Will discuss with nephrology on possible additional medication Entresto but she may not take this due to low blood pressure. Will need close follow-up with electrophysiology for future ablation and possible pacemaker/defibrillator. Will need to discuss advanced directives in detail with patient and son. Acute on Chronic renal disease stage 3: Will need to monitor renal function closely. Hypothyroidism: Levothyroxine increased for better control. Elevated liver function likely related to amiodarone: Amiodarone discontinued. This was discussed with cardiology. Time Spent Managing Pts Care (In Minutes): 55
[2019-12-07 20:28] LABS: Urine Appearance CLEAR; Urine Bilirubin NEGATIVE (NEG); Urine Blood NEGATIVE (NEG); Urine Color YELLOW; Urine Glucose NEGATIVE (NEG); Urine Protein TRACE (NEG); Urine Specific Gravity 1.025 (1.005-1.030); Urine pH 5.5 (5.0-7.0)
[2019-12-07 20:30] LABS: Urine Microscopic Reflex ORDER UMIC
--- NOTE | 2019-12-07 20:50 | CON ---
Date of Consultation: 12/06/2019 Reason For Consultation: Congestive heart failure management. History Of Present Illness: This is a 74-year-old female with a known history of what appears to be nonischemic severe cardiomyopathy with ejection fraction below 25%, history of atrial fibrillation, h ypothyroidism, presented to the emergency room with significant shortness of breath, orthopnea, lower extremity edema. In the ED, she was in atrial fibrillation with rapid ventricular rate at 116. Den ies having any chest pain. No other specific complaints. Past Medical History: As outlined above in HPI. Medications: Refer to reconciliation sheet for detailed list. Allergies: ALLERGIC TO NSAIDS. Social History: Does not smoke or drink. Does not use any drugs. Family History: No premature coronary artery disease or cancer. Past Surgical History: She had a bilateral knee surgery, cholecystectomy, and fibroid tumor removal. Review of Systems: All systems reviewed, they were negative except mentioned in HPI. Physical Examination: Vital Signs: Temperature was 98.4, pulse is 78, breathing at 18, blood pressure 115/96, saturating 9 7% on room air. General: Pleasant elderly female, in no apparent distress. Head and Neck: Pupils are equal and reactive to light. Intact eye movements. Positive JVD. No cer vical lymphadenopathy. Neck is supple. Thyroid is not enlarged. Lungs: Has crackles in both bases. No accessory muscle use or muscle retraction. Heart: Regular with no extra sounds. Abdomen: Soft, nontender. Bowel sounds positive. No organomegaly. No masses or hernia. No rigidi ty or rebound. Extremities: Edema bilaterally. No clubbing or cyanosis, intact pulses. Skin: No rashes. Neurologic: Alert, awake, oriented x3. No acute focal deficit appreciated. Investigations: CT angio of the aorta showed no evidence of dissection. There are heart failure fin dings. Sodium 136, BUN is 19, creatinine 1.4. Assessment And Plan: 1.Severe nonischemic cardiomyopathy with significant systolic dysfunction. Apparently, patient had workup in the past including cardiac catheterization that did not reveal any coronary artery disease. Recommend to follow a guideline directed medical therapy, reduce Entresto and beta maura and get the dose maximized as the blood pressure allows and as the patient tolerates. Recommend Lasix 40 mg IV q.12 hours. Switch to oral once condition is more stable. 2.Atrial fibrillation. Rate is controlled at this point. Recommend beta maura as a main controll ing agent and avoid amiodarone due to elevated liver enzymes. Thank you for the courtesy of this consultation. /LOIDA Voice ID: [id number] Report ID: [id number]
[2019-12-07 21:09] LABS: Urine Bacteria <20 /HPF (<20); Urine Culture Reflex Order NOT NEEDED; Urine RBC <5 /HPF (NONE SEEN)
[2019-12-07] MEDS: AMOX/K CLAV 500 MG TAB PO SCH (21:18)
--- NOTE | 2019-12-07 21:35 | PN ---
Date of Progress Note: 12/07/2019 Subjective: Seen at bedside, doing better. Review of Systems: No significant orthopnea. Still with some dyspnea on exertion. No chest pain or shortness of breath . No nausea, vomiting, diarrhea. No history of urinary urgency. Other systems reviewed, all are ne gative. Physical Examination: Vital Signs: Temperature is 98.7, pulse 85, breathing 16, blood pressure is 95/62, saturating 94%. General: Pleasant elderly female, in no distress. Head and Neck: Pupils are equal, react to light. Intact eye movements. No JVD. No cervical lympha denopathy. Neck is supple. Thyroid is not enlarged. Lungs: Clear to auscultation bilaterally. No rhonchi, rales or crackles. No accessory muscle use. Heart: Regular. No extra sounds. Abdomen: Soft, nontender. Bowel sounds positive. No organomegaly. No masses or hernias. Extremities: No clubbing or cyanosis. Intact pulses. Skin: No rashes. Neurologic: Alert, awake, oriented x3. No acute focal deficits appreciated. Investigations: Sodium 131, BUN 32, creatinine 1.6, AST is 1117, ALT is 910. Assessment And Plan: 1.Congestive heart failure, severely depressed LV function, which is known to be nonischemic. Yolette nue guideline-directed medical therapy for congestive heart failure. Try to optimize the beta-blocke r and Entresto if blood pressure allows. 2.Paroxysmal atrial fibrillation. Make sure the amiodarone is completely discontinued due to elevated liver enzymes and adjust beta-maura, set as needed, and mon itor clinically. SR/MODL Voice ID: [id number] Report ID: [id number]
--- NOTE | 2019-12-08 00:11 | PN ---
Date of Progress Note: 12/07/2019 Subjective: Patient is seen and examined. She states that she continues to have some mild shortness of breath, but otherwise denies any other complaints. Physical Examination: Vital Signs: Showing temperature of 98.7, pulse rate of 95, respiratory rate of 16, and blood pressu re 90/63. General: She appears in no acute distress. HEENT: She has atraumatic head. Lungs: Clear to auscultation. Diminished breath sounds at bases. Cardiac: Auscultation of the heart revealed regular rate and rhythm. Extremities: Showed no evidence of edema. Laboratory Data: At this time are showing creatinine improving to 1.63, sodium of 131, potassium of 4.2, chloride of 93, and bicarb of 29. CBC showed stable hemoglobin, hematocrit, and platelet count. Current Medications: Include Augmentin, aspirin, calcitriol, carvedilol 3.125 mg b.i.d., levothyroxi ne, tramadol. Impression: 1.Acute on chronic renal insufficiency, currently with improving renal function. 2.Acute congestive heart failure exacerbation, also improved. The patient has severe nonischemic ca rdiomyopathy with depressed left ventricular function. Medical management at this time, not on any E ntresto or diuretic secondary to volume status being stable to dehydrated side. 3.Severely elevated liver function tests, likely secondary to hypoperfusion from dehydration. 4.Urinary tract infection, remains on antibiotics. Plan: The patient's condition is very guarded at this time. She has hyponatremia from CHF and renal function is overall stabilized, but we are concerned about severely elevated LFTs. Discussed with Kamar Potts. We will continue to monitor at this time. She will need close outpatient followup to mon itor volume status and renal function closely. The patient is receiving antibiotics for the UTI as well. We will follow up on a.m. labs. VV/MODL Voice ID: [id number] Report ID: [id number]
[2019-12-08] MEDS: LEVOTHYROXINE SOD 0.112 MG TAB PO SCH (06:20)
[2019-12-08 06:22] LABS: Basophils % 0.5 % (0-1.3); Lymphocytes % 12.2 % (15.3-44.8); RBC Red Blood Cell Count 3.96 M/uL (3.86-4.86)
[2019-12-08] MEDS ORDERED: LEVOTHYROXINE SOD 0.112 MG TAB ONE (06:25)
[2019-12-08 06:43] LABS: Albumin 3.1 g/dL (3.4-5.0); Bilirubin Total 1.2 mg/dL (0.2-1.0); Magnesium 2.3 mg/dL (1.8-2.4); Potassium 4.1 mmol/L (3.5-5.1); Protein, Total 5.7 g/dL (6.4-8.2)
[2019-12-08] MEDS: INSULIN -REGULAR HUMAN 50 UNIT/0.5 ML ML SQ SCH ×4 (07:30→21:00)
[2019-12-08] MEDS: carvediloL 6.25 MG TAB PO SCH ×2 (09:00→21:00)
[2019-12-08] MEDS: PANTOPRAZOLE 40MG TABLET PO SCH (09:00)
[2019-12-08] MEDS: DOCUSATE NA 100 MG CAP PO SCH ×2 (10:03→21:00)
[2019-12-08] MEDS: AMOX/K CLAV 500 MG TAB PO SCH ×2 (10:03→21:16)
[2019-12-08] MEDS: ASPIRIN EC 81 MG TAB PO SCH (10:03)
[2019-12-08] MEDS: VITAMIN D 5,000 UNIT CAP PO SCH (10:03)
[2019-12-08] MEDS: CALCITROL 0.25 MCG CAP PO SCH (10:03)
--- NOTE | 2019-12-08 14:29 | P.PN ---
Subjective Date of Service: 12/08/19 Chief Complaint: Abdominal pain Subjective: Improving, Doing well Physical Examination - Vital Signs Temperature: 96.6 F Blood Pressure: 100/60 Pulse: 88 Respirations: 18 Pulse Ox (%): 95 - Physical Exam General: Alert, Cooperative HEENT: Atraumatic Neck: Supple Respiratory: Clear to auscultation bilaterally, Normal air movement Cardiovascular: Irregular heart rate/rhythm (AFib rate controlled) Gastrointestinal: Non-distended, No tenderness Neurological: Normal strength at 5/5 x4 extr, Normal tone, Normal affect - Studies Medications List Reviewed: Yes Assessment & Plan Discharge Plan: Home Plan to discharge in: 24 Hours Physician Review Additional Text: Impression: Abdominal pain suspect related to UTI, urine culture positive for E coli Hypotension likely from volume depletion related to recent diarrhea Atrial fibrillation with RVR on chronic anti coagulation therapy Acute on chronic systolic CHF with ejection fraction 15-20% complicated with moderate pulmonary hypertension, global severe hypokinesis with by atrial enlargement Acute on Chronic renal disease stage 3 Hypothyroidism Elevated liver function likely related to amiodarone. Plan: Abdominal pain suspect related to UTI, urine culture positive for E coli: Continue Augmentin. Patient will need treatment for 7 days. Case discussed with nephrology and cardiology. Patient has to cancel her upcoming visit with electrophysiology for cardiac ablation due to UTI. This will need to be rescheduled. Patient previously with heart catheterization perform showing normal coronaries. But Patient has significant cardiomyopathy/systolic CHF with ejection fraction around 15-20%. Continue with fluid restriction. Continue monitor for 1 more day. Amiodarone was discontinued due to elevated liver function. Liver function improved. Case discussed with son and patient. Cardiology recommends to discontinue chronic anti coagulation therapy-Eliquis due to her risk of falls. Patient now on aspirin only. If improved will plan for discharge tomorrow. Prior to discharge tomorrow will discuss advanced directives. Hypotension likely from volume depletion related to recent diarrhea: Patient has improved. Blood pressure stable but carvedilol decreased. Atrial fibrillation with RVR on chronic anti coagulation therapy: Cardiology recommends to discontinue chronic anti coagulation therapy-Eliquis due to risk of fall. Son is in agreement. Will continue aspirin. Patient off amiodarone due to elevated liver function. Liver function improved. Acute on chronic systolic CHF with ejection fraction 15-20% complicated with moderate pulmonary hypertension, global severe hypokinesis with by atrial enlargement: Patient had heart catheterization recently. Medical management was addressed in detail. Continue fluid restriction if possible. May require diuresis but will monitor this closely. Patient would benefit with Entresto and beta-maura therapy. Patient cannot tolerate Entresto at this time due to low blood pressure. This can be further monitored as an outpatient and address. Carvedilol has been adjusted. Will need close follow-up with electrophysiology for future ablation and possible pacemaker/defibrillator. Case discussed in detail with son. Acute on Chronic renal disease stage 3: Improved. Will monitor closely. Will discuss further with nephrology.. Hypothyroidism: Levothyroxine increased for better control. Recommend to recheck lab-tsh and free T4 in 1 month for further adjustment. Elevated liver function likely related to amiodarone: Amiodarone discontinued. This was discussed with cardiology. Time Spent Managing Pts Care (In Minutes): 55
[2019-12-08] MEDS ORDERED: TRAMADOL HCL 50 MG TAB PO PRN (17:09)
[2019-12-09] MEDS ORDERED: LEVOTHYROXINE SOD 0.112 MG TAB ONE (05:53)
[2019-12-09] MEDS: LEVOTHYROXINE SOD 0.112 MG TAB PO SCH (05:54)
[2019-12-09] MEDS: INSULIN -REGULAR HUMAN 50 UNIT/0.5 ML ML SQ SCH ×4 (07:30→21:00)
[2019-12-09] MEDS: PANTOPRAZOLE 40MG TABLET PO SCH (09:00)
[2019-12-09] MEDS: carvediloL 6.25 MG TAB PO SCH ×2 (09:00→21:00)
[2019-12-09] MEDS: ASPIRIN EC 81 MG TAB PO SCH (09:34)
[2019-12-09] MEDS: AMOX/K CLAV 500 MG TAB PO SCH ×2 (09:34→22:10)
[2019-12-09] MEDS: CALCITROL 0.25 MCG CAP PO SCH (09:34)
[2019-12-09] MEDS: VITAMIN D 5,000 UNIT CAP PO SCH (09:34)
[2019-12-09] MEDS: DOCUSATE NA 100 MG CAP PO SCH ×2 (09:34→22:11)
[2019-12-09 15:14] LABS: Protime INR 3.1
[2019-12-09 15:46] LABS: Albumin 3.2 g/dL (3.4-5.0); Bilirubin Total 2.6 mg/dL (0.2-1.0)
[2019-12-09 15:49] LABS: Potassium 4.3 mmol/L (3.5-5.1)
--- NOTE | 2019-12-09 16:53 | P.PN ---
Subjective Date of Service: 12/09/19 Chief Complaint: Abdominal pain Physical Examination - Vital Signs Temperature: 97.9 F Blood Pressure: 117/56 Pulse: 103 Respirations: 18 Pulse Ox (%): 95 - Studies Medications List Reviewed: Yes Assessment & Plan Discharge Plan: Home Plan to discharge in: 24 Hours Physician Review Additional Text: Impression: Abdominal pain suspect related to UTI, urine culture positive for E coli Hypotension likely from volume depletion related to recent diarrhea Atrial fibrillation with RVR on chronic anti coagulation therapy Acute on chronic systolic CHF with ejection fraction 15-20% complicated with moderate pulmonary hypertension, global severe hypokinesis with by atrial enlargement Acute on Chronic renal disease stage 3 Hypothyroidism Elevated liver function likely related to amiodarone. Plan: Abdominal pain suspect related to UTI, urine culture positive for E coli: Continue Augmentin. Patient will need treatment for 7 days. Case discussed with nephrology and cardiology. Patient has to cancel her upcoming visit with electrophysiology for cardiac ablation due to UTI. This will need to be rescheduled. Patient previously with heart catheterization perform showing normal coronaries. But Patient has significant cardiomyopathy/systolic CHF with ejection fraction around 15-20%. Continue with fluid restriction. Continue monitor for 1 more day. Amiodarone was discontinued due to elevated liver function. Liver function improved. Case discussed with son and patient. Cardiology recommends to discontinue chronic anti coagulation therapy-Eliquis due to her risk of falls. Patient now on aspirin only. If improved will plan for discharge tomorrow. Prior to discharge tomorrow will discuss advanced directives. Hypotension likely from volume depletion related to recent diarrhea: Patient has improved. Blood pressure stable but carvedilol decreased. Atrial fibrillation with RVR on chronic anti coagulation therapy: Cardiology recommends to discontinue chronic anti coagulation therapy-Eliquis due to risk of fall. Son is in agreement. Will continue aspirin. Patient off amiodarone due to elevated liver function. Liver function improved. Acute on chronic systolic CHF with ejection fraction 15-20% complicated with moderate pulmonary hypertension, global severe hypokinesis with by atrial enlargement: Patient had heart catheterization recently. Medical management was addressed in detail. Continue fluid restriction if possible. May require diuresis but will monitor this closely. Patient would benefit with Entresto and beta-maura therapy. Patient cannot tolerate Entresto at this time due to low blood pressure. This can be further monitored as an outpatient and address. Carvedilol has been adjusted. Will need close follow-up with electrophysiology for future ablation and possible pacemaker/defibrillator. Case discussed in detail with son. Acute on Chronic renal disease stage 3: Improved. Will monitor closely. Will discuss further with nephrology.. Hypothyroidism: Levothyroxine increased for better control. Recommend to recheck lab-tsh and free T4 in 1 month for further adjustment. Elevated liver function likely related to amiodarone: Amiodarone discontinued. This was discussed with cardiology. Case Caldwell discuss with GI. Will monitor liver function test again tomorrow. If stable will plan for discharge. Time Spent Managing Pts Care (In Minutes): 55
[2019-12-09] MEDS ORDERED: ALBUTEROL 2.5 MG/3 ML NEB SOL NEB PRN (17:00)
[2019-12-09] MEDS: FUROSEMIDE 20 MG TABLET PO SCH (18:15)
--- NOTE | 2019-12-09 22:51 | P.PN ---
Date of Service: 12/09/19 Vital Signs Temp Pulse Resp BP Pulse Ox 97.6 F 84 16 96/66 95 12/09/19 20:00 12/09/19 21:00 12/09/19 20:00 12/09/19 21:00 12/09/19 20:00 Medications Albuterol Sulfate (Proventil 0.083% Neb Soln) 2.5 mg NEB [id number] PRN PRN Reason: SHORTNESS OF BREATH Stop: 01/04/20 06:59 Amoxicillin/Clavulanate Potassium (Augmentin 500-125 Mg Tab) 250 mg PO BID [facility]; Protocol Stop: 01/06/20 21:01 Last Admin: 12/09/19 22:10 Dose: 250 mg Documented by: Aspirin (Aspirin Ec) 81 mg PO DAILY [facility] Stop: 01/07/20 09:01 Last Admin: 12/09/19 09:34 Dose: 81 mg Documented by: Calcitriol (Rocaltrol) 0.5 mcg PO DAILY [facility] Stop: 01/06/20 09:01 Last Admin: 12/09/19 09:34 Dose: 0.5 mcg Documented by: Carvedilol (Coreg) 3.125 mg PO BID [facility] Stop: 01/06/20 21:01 Last Admin: 12/09/19 21:00 Dose: Not Given Documented by: Cetylpyridinium Chloride/Menthol (Cepacol Lozenges) 1 jesus PO Q4H PRN PRN Reason: COUGH Stop: 01/05/20 19:24 Last Admin: 12/06/19 23:47 Dose: 1 jesus Documented by: Cholecalciferol (Vitamin D 5,000 Iu Cap) 5,000 unit PO DAILY [facility] Stop: 01/06/20 09:01 Last Admin: 12/09/19 09:34 Dose: 5,000 unit Documented by: Dextrose (Dextrose 50% Syringe/Vial) 12.5 gm IV PRN PRN; Protocol PRN Reason: HYPOGLYCEMIA Stop: 01/04/20 18:32 Last Admin: 12/05/19 18:42 Dose: 12.5 gm Documented by: Docusate Sodium (Colace Cap) 100 mg PO BID [facility] Stop: 01/05/20 21:01 Last Admin: 12/09/19 22:11 Dose: 100 mg Documented by: Furosemide (Lasix) 20 mg PO BIDL [facility] Stop: 01/08/20 17:01 Last Admin: 12/09/19 18:15 Dose: 20 mg Documented by: Glucagon (Glucagen) 1 mg IM 1X PRN; Protocol PRN Reason: HYPOGLYCEMIA Stop: 01/04/20 18:32 Insulin Human Regular (Novolin -R) 0 unit SQ ACHS [facility]; Protocol Stop: 01/04/20 21:01 Last Admin: 12/09/19 21:00 Dose: Not Given Documented by: Levothyroxine Sodium (Synthroid) 0.112 mg PO DAILYAC [facility] Stop: 01/06/20 06:31 Last Admin: 12/09/19 05:54 Dose: 0.112 mg Documented by: Pantoprazole Sodium (Protonix Tab) 40 mg PO DAILY [facility]; Protocol Stop: 01/05/20 09:01 Last Admin: 12/09/19 09:00 Dose: 40 mg Documented by: Sodium Chloride (Normal Saline Flush) 10 ml IV BID [facility] Stop: 01/04/20 09:01 Last Admin: 12/09/19 22:11 Dose: 10 ml Documented by: Tramadol HCl (Ultram) 50 mg PO Q6H PRN PRN Reason: Pain scale 5-7 (Moderate) Stop: 01/07/20 17:10 Last Admin: 12/08/19 17:31 Dose: 50 mg Documented by: Microbiology Results 12/04/19 23:10 Clean Catch Urine [place] Count - Final >100,000 CFU/ML. 12/04/19 23:10 Clean Catch Urine - Final Escherichia Coli 12/05/19 10:15 Nasopharnyx Coronavirus COVID-19 PCR - Final Assessment/ Plan: Nephrology CPS stable without CP or SOB. Worsening edema. Feels that her palpitations have improved. No acute events overnight. Vitals, medications, blood work and imaging reviewed in the chart. NAD. MMM. Neck supple. CTA. RRR. Soft Abd. No C/C/E. No rash. AAO. Normal Speech. General: Cooperative, Mild distress HEENT: Atraumatic Neck: Supple Respiratory: Rhonchi/gurgles Cardiovascular: No edema, Regular rate/rhythm Gastrointestinal: Soft and benign, Non-distended Musculoskeletal: No clubbing, No contractures Integumentary: No rashes, No cyanosis Neurological: Abnormal speech (Trach) Laboratory Data (last 24 hrs) 12/04/19 19:45: Lipase 109 12/04/19 19:43: PT 31.4 H, INR 2.71 12/04/19 19:43: WBC 5.2 D, Hgb 14.4, Hct 43.7, Plt Count 261 12/04/19 19:43: Sodium 135 L, Potassium 3.4 L, BUN 19 H, Creatinine 1.49 H, Glucose 167 H, Magnesium 2.1 D, Total Bilirubin 2.0 H, AST 59 H, ALT 71, Alkaline Phosphatase 97 Imagings Data: EXAM DESCRIPTION: RAD - Chest Single View - 12/04/2019 7:57 pm CLINICAL HISTORY: CHEST PAIN, shortness of breath COMPARISON: November 22 portable chest TECHNIQUE: AP portable chest image was obtained 12/04/2019 7:57 pm . FINDINGS: No peripheral mass consolidation. Lung markings less pronounced than seen previously. Cardiomegaly is present. Vasculature is mildly prominent. No measurable pleural effusion and no pneumothorax. No acute bony abnormality seen. No acute aortic findings suspected. IMPRESSION: Cardiomegaly similar to comparison. Vasculature and lung markings are less prominent than seen previously. No significant failure or volume overload at this time. EXAM DESCRIPTION: CT - Angio Aorta For Dissection - 12/04/2019 8:48 pm CLINICAL HISTORY: Chest pain;Abdominal distention COMPARISON: Portable chest same date, CT study February 2012 TECHNIQUE: Dynamically enhanced 3 mm thick images of the chest, abdomen, and upper pelvis were obtained during administration of approximately 150mL Isovue 370 IV contrast. Sagittal and coronal reconstruction images were generated using MIP and reviewed. Exam utilizes a protocol to evaluate entire course of the aorta. All CT scans are performed using dose optimization technique as appropriate and may include automated exposure control or mA/KV adjustment according to patient size. FINDINGS: Aorta is normal in diameter with no dissection or other acute aortic findings. Reconstruction images show no significant findings. No pulmonary artery acute finding. Cardiomegaly is present primarily a biatrial enlargement process. Left ventricle is prominent as well. No pericardial effusion. No peripheral mass or consolidation. No measurable ground-glass opacification. Interstitial pattern is not clearly outside of normal range. Trace amounts of pleural fluid present. No pleural thickening or pleural based mass. No pneumothorax. Small reactive type hilar lymph nodes are present. No mediastinal lymphadenopathy. No chest wall mass or abnormal axillary lymphadenopathy. Mild narrowing of the origin of the celiac artery. No narrowing of the superior mesenteric artery. MATT is patent. No renal artery abnormality seen. The liver, spleen and pancreas show no suspicious findings. No renal parenchymal abnormality seen. Medial to the left kidney there is a 4 centimeter oval fluid attenuation mass. Etiology is uncertain. This was present and measured 3.3 cm in 2012. This is not seen as a significant finding. No suspicious mass or abnormal lymphadenopathy. No free air or pneumatosis. Small amount of free fluid is present in the dependent portion of the pelvis. No urinary bladder abnormality. Uterus and ovaries show no suspicious findings for age. IMPRESSION: Negative CT scan of the aorta. Patient has significant cardiomegaly new from 2011. No pericardial effusion. Mild failure is possible. No significant degree of failure or volume overload. EXAM DESCRIPTION: US - Liver Only - 12/05/2019 9:05 am CLINICAL HISTORY: Right upper pain COMPARISON: None FINDINGS: The liver has a normal echotexture. Hepatopetal flow. A lesion is not visualized. The spleen measures 8 centimeters. Cholecystectomy IMPRESSION: Unremarkable liver ultrasound Unremarkable ultrasound spleen EXAM DESCRIPTION: US - Renal Ultrasound-Complete - 12/05/2019 9:05 am CLINICAL HISTORY: . Renal mass with chronic renal disease COMPARISON: December 04, 2019 cat scan FINDINGS: The right kidney measures 9 centimeters with a mildly increased echotexture The left kidney measures 9 centimeters with a mildly increased echotexture. 4 centimeter cyst abuts medial aspect of the left kidney Hydronephrosis is not seen. No gross abnormality of bladder IMPRESSION: Mildly increased renal echotexture consistent with parenchymal disease 4 centimeter cyst which abuts the medial aspect of the left kidney is likely benign EXAM DESCRIPTION: RAD - Abdomen 1 View (KUB) - 12/05/2019 6:54 pm CLINICAL HISTORY: abdominal pain Pain COMPARISON: No comparisons FINDINGS: The bowel gas pattern is non-obstructive. No evidence of free air or pneumatosis. No suspicious calcifications. No significant bony findings. Cholecystectomy clips. IMPRESSION: Negative examination. Conclusions/Impression: A/ BECCA worse in the setting of hypovolemia/ hypotension. Hyponatremia Hypokalemia Hypocalcemia HyperPO4 CKD III Systolic Diastolic CHF, chronic. Pulmonary HTN Hypo/ Hyperglycemia Hypothyroidism, uncontrolled. Acute cystitis P/ Continue current POC and Medications. Repletes lytes prn. Continue abx. Follow up with cardiology. Low sodium diet. No NSAIDs. AM labs. Daily weight. Consider PT. Case reviewed with Dr. Potts.
[2019-12-10] MEDS: LEVOTHYROXINE SOD 0.112 MG TAB PO SCH (05:33)
[2019-12-10] MEDS ORDERED: LEVOTHYROXINE SOD 0.112 MG TAB ONE (05:39)
[2019-12-10 06:01] LABS: Absolute Lymphocytes (CBC) 0.8 K/uL (0.7-4.9); Basophils % 0.2 % (0-1.3); Lymphocytes % 12.2 % (15.3-44.8); MPV 9.6 fL (7.6-11.3); Protime INR 2.96; RBC Red Blood Cell Count 4.21 M/uL (3.86-4.86)
[2019-12-10 06:10] LABS: Albumin 3.1 g/dL (3.4-5.0); Bilirubin Total 2.4 mg/dL (0.2-1.0); Potassium 4.2 mmol/L (3.5-5.1); Protein, Total 5.9 g/dL (6.4-8.2)
[2019-12-10] MEDS: INSULIN -REGULAR HUMAN 50 UNIT/0.5 ML ML SQ SCH ×2 (07:30→11:30)
[2019-12-10] MEDS: PANTOPRAZOLE 40MG TABLET PO SCH (09:00)
[2019-12-10] MEDS: AMOX/K CLAV 500 MG TAB PO SCH (10:01)
[2019-12-10] MEDS: DOCUSATE NA 100 MG CAP PO SCH (10:02)
[2019-12-10] MEDS: CALCITROL 0.25 MCG CAP PO SCH (10:02)
[2019-12-10] MEDS: FUROSEMIDE 20 MG TABLET PO SCH (10:02)
[2019-12-10] MEDS: VITAMIN D 5,000 UNIT CAP PO SCH (10:02)
[2019-12-10] MEDS: ASPIRIN EC 81 MG TAB PO SCH (10:02)
[2019-12-10] MEDS: carvediloL 6.25 MG TAB PO SCH (10:03)
--- NOTE | 2019-12-10 12:15 | P.DS ---
Admission Date: 12/06/19 Discharge Date: 12/10/19 Primary Care Provider: Dr. Correa-Nephrology; Cardiology-Dr. Lozano Disposition: ROUTINE DISCHARGE Discharge Condition: GOOD Reason for Admission: Abdominal pain Consultations: Cardiology-Dr. Ruby GI-Dr. Busch Nephrology-Dr. Correa Procedures: Renal US: FINDINGS: The right kidney measures 9 centimeters with a mildly increased echotexture The left kidney measures 9 centimeters with a mildly increased echotexture. 4 centimeter cyst abuts medial aspect of the left kidney Hydronephrosis is not seen. No gross abnormality of bladder IMPRESSION: Mildly increased renal echotexture consistent with parenchymal disease 4 centimeter cyst which abuts the medial aspect of the left kidney is likely benign Liver US: FINDINGS: The liver has a normal echotexture. Hepatopetal flow. A lesion is not visualized. The spleen measures 8 centimeters. Cholecystectomy IMPRESSION: Unremarkable liver ultrasound Unremarkable ultrasound spleen ECHO: Ejection fraction 17% LEFT VENTRICULAR WALL MOTION: SEVERE GLOBAL HYPOKINESIS. DOPPLER/COLOR FLOW: MILD TO MODERATE PULMONIC HYPERTENSION WITH RIGHT VENTRICULAR SYSTOLIC PRESSURE OF 40-45mmHg. COMMENTS: SEVERELY DEPRESSED LEFT VENTRICULAR EJECTION FRACTION 15-20%, MILDLY DILATED LEFT VENTRICLE. GLOBAL SEVERE HYPOKINESIS AT THE LEFT VENTRICLE. BI ATRIAL ENLARGEMENT. MODERATE PULMONARY HYPERTENSION WITH RIGHT VENTRICULAR SYSTOLIC PRESSURE 40-45mmHg AND RIGHT ATRIAL PRESSURE IS GREATER THAN 20mmHg. ELEVATED FILLING PRESSURE. RESTRICTIVE DIASTOLOGY CT scan: FINDINGS: Aorta is normal in diameter with no dissection or other acute aortic findings. Reconstruction images show no significant findings. No pulmonary artery acute finding. Cardiomegaly is present primarily a biatrial enlargement process. Left ventricle is prominent as well. No pericardial effusion. No peripheral mass or consolidation. No measurable ground-glass opacification. Interstitial pattern is not clearly outside of normal range. Trace amounts of pleural fluid present. No pleural thickening or pleural based mass. No pneumothorax. Small reactive type hilar lymph nodes are present. No mediastinal lymphadenopathy. No chest wall mass or abnormal axillary lymphadenopathy. Mild narrowing of the origin of the celiac artery. No narrowing of the superior mesenteric artery. MATT is patent. No renal artery abnormality seen. The liver, spleen and pancreas show no suspicious findings. No renal parenchymal abnormality seen. Medial to the left kidney there is a 4 centimeter oval fluid attenuation mass. Etiology is uncertain. This was present and measured 3.3 cm in 2012. This is not seen as a significant finding. No suspicious mass or abnormal lymphadenopathy. No free air or pneumatosis. Small amount of free fluid is present in the dependent portion of the pelvis. No urinary bladder abnormality. Uterus and ovaries show no suspicious findings for age. IMPRESSION: Negative CT scan of the aorta. Patient has significant cardiomegaly new from 2012. No pericardial effusion. Mild failure is possible. No significant degree of failure or volume overload. No acute findings in the abdomen or pelvis. Cystic or low-density 4 centimeter mass medial to the left kidney has slowly enlarged since 2012 were it measured 3.3 cm. Etiology is uncertain. This is not seen as significant given the benign characteristics and slow growth over an 8 year interval. Medical Problem List: Abdominal pain suspect related to UTI, urine culture positive for E coli Hypotension likely from volume depletion related to recent diarrhea Atrial fibrillation with RVR on chronic anti coagulation therapy Acute on chronic systolic CHF with ejection fraction 15-20% complicated with moderate pulmonary hypertension, global severe hypokinesis with by atrial enlargement, restrictive diastology Acute on Chronic renal disease stage 3 Hypothyroidism Elevated liver function likely related to amiodarone. Brief History of Present Illness: 74-year-old female with multiple medical problems presented to the emergency room with abdominal pain, nausea and vomiting. Patient was admitted for further evaluation. Hospital Course: Patient presented with abdominal pain. This was likely related to UTI. Patient found to have E coli. Patient treated on Augmentin. Patient has improved. At discharge patient will continue with Augmentin 250 mg twice daily for 3 more days. UTI precautions provided. Patient had an episode of hypotension likely from volume depletion. This was due to recent diarrhea. This has resolved. Patient doing better at this time. Patient with underlying chronic diseases including chronic systolic CHF with ejection fraction 17% complicated with moderate pulmonary hypertension, global severe hypokinesis with atrial enlargement, atrial fibrillation and hypertension. Patient now stable at this time. At discharge patient will continue with Lasix 20 mg daily. Recommend to continue a 1500 cc per day fluid restriction and low-salt diet. Further adjustment in Lasix can be done by cardiology or nephrology if required. Patient with atrial fibrillation on chronic anti coagulation therapy. Due to risk factors cardiology recommended to discontinue Eliquis. At discharge patient will only continue with aspirin 81 mg daily. Patient previously on amiodarone. This was discontinued due to elevated liver function. This was also recommended by Cardiology to discontinue. Recommend follow up with cardiology to further monitor. Patient was to have a cardiac ablation for her atrial fibrillation. This had to be rescheduled due to UTI. Recommend follow up with cardiac electrophysiology to further address. In the future patient may need to be also considered for pacemaker defibrillator. This can be further addressed as an outpatient. As mentioned above patient had elevated liver function. This was likely related to amiodarone. After further discussion with Cardiology and GI, amiodarone was discontinued. Liver function has improved. Recommend to recheck CMP in 1-2 weeks to monitor resolution. Patient with acute on chronic renal disease stage III. This has remained stable. At discharge she will continue with Calcitrol 0.5 mcg daily and vitamin-D 5000 mg daily. Recommend no further use of nonsteroidal anti- inflammatories. Future medications would to be renally dose. Recommend follow up with nephrology in 1 week. Recommend to recheck lab-CMP in 1 week. Patient with hypothyroidism. Medication was adjusted. Medication decreased. At discharge she will continue with levothyroxine 100 mcg daily. Recommend to recheck tsh and free T4 in 1 month to monitor her progress. Further adjustment may be required at that time. This can be addressed by her PCP. Patient with GERD. Patient may continue with Protonix 40 mg daily. Patient may take stool softener as needed. Vital Signs/Physical Exam: Temp Pulse Resp BP Pulse Ox 97.7 F 105 H 18 120/67 97 12/10/19 08:00 12/10/19 10:03 12/10/19 08:00 12/10/19 10:03 12/10/19 08:00 General: Alert, Cooperative HEENT: Atraumatic Neck: Supple Respiratory: Clear to auscultation bilaterally, Normal air movement Cardiovascular: Normal pulses, Regular rate/rhythm Gastrointestinal: Normal bowel sounds, Soft and benign, Non-distended Integumentary: No erythema, No warmth, No cyanosis Neurological: Normal speech, Normal strength at 5/5 x4 extr, Normal tone, Normal affect Laboratory Data at Discharge: WBC 6.4 K/uL (4.3-10.9) D 12/10/19 05:21 Hgb 13.0 g/dL (12.0-15.0) 12/10/19 05:21 Hct 39.0 % (36.0-45.0) 12/10/19 05:21 Plt Count 241 K/uL (152-406) 12/10/19 05:21 PT 34.2 SECONDS (9.5-12.5) H 12/10/19 05:21 INR 2.96 12/10/19 05:21 Sodium 132 mmol/L (136-145) L 12/10/19 05:21 Potassium 4.2 mmol/L (3.5-5.1) 12/10/19 05:21 BUN 34 mg/dL (7-18) H 12/10/19 05:21 Creatinine 1.32 mg/dL (0.55-1.3) H 12/10/19 05:21 Glucose 135 mg/dL (74-106) H 12/10/19 05:21 Uric Acid 10.6 mg/dL (2.6-6.0) H D 12/07/19 06:30 Phosphorus 3.5 mg/dL (2.5-4.9) 12/07/19 06:30 Magnesium 2.3 mg/dL (1.8-2.4) 12/08/19 05:38 Total Bilirubin 2.4 mg/dL (0.2-1.0) H 12/10/19 05:21 AST 598 U/L (15-37) H* D 12/10/19 05:21 ALT 814 U/L (12-78) H* 12/10/19 05:21 Alkaline Phosphatase 135 U/L (45-117) H 12/10/19 05:21 Lipase 109 U/L (73-393) 12/04/19 19:45 Home Medications: Levothyroxine Sodium [Levothroid] 100 mcg PO DAILY 03/16/12 Carvedilol [Coreg] 6.25 mg PO BID 11/24/19 Nitroglycerin [Nitrostat*] 0.4 mg SL UD PRN #30 tab 11/24/19 Pantoprazole Sodium [Protonix] 40 mg PO DAILY 30 Days #30 tablet. 11/24/19 traMADol HCL [Ultram*] 50 mg PO Q6H PRN #20 tab 11/24/19 Amoxicillin/Potassium Clav [Augmentin 250-62.5 mg/5 ml] 5 ml PO BID #1 bottle 12/10/19 Aspirin [Aspirin EC 81 MG] 81 mg PO DAILY #30 tablet. 12/10/19 Calcitrol [Rocaltrol*] 0.5 mcg PO DAILY #60 cap 12/10/19 Carvedilol [Coreg] 3.125 mg PO BID #60 tablet 12/10/19 Cholecalciferol (Vitamin D3) [Vitamin D 5,000 IU Cap*] 5,000 unit PO DAILY #30 cap 12/10/19 Docusate [Colace Cap*] 100 mg PO BID #60 cap 12/10/19 Furosemide [Lasix] 20 mg PO DAILY #30 tablet 12/10/19 New Medications: Aspirin [Aspirin EC 81 MG] 81 mg PO DAILY #30 tablet. Amoxicillin/Potassium Clav [Augmentin 250-62.5 mg/5 ml] 5 ml PO BID #1 bottle Docusate [Colace Cap*] 100 mg PO BID #60 cap Carvedilol [Coreg] 3.125 mg PO BID #60 tablet Furosemide [Lasix] 20 mg PO DAILY #30 tablet Calcitrol [Rocaltrol*] 0.5 mcg PO DAILY #60 cap Cholecalciferol (Vitamin D3) [Vitamin D 5,000 IU Cap*] 5,000 unit PO DAILY #30 cap Patient Discharge Instructions: 1. Follow up with PCP in 1 week. 2. Patient presented with abdominal pain. This was likely related to UTI. Patient found to have E coli. Patient treated on Augmentin. Patient has improved. At discharge patient will continue with Augmentin 250 mg twice daily for 3 more days. UTI precautions provided. 3. Patient had an episode of hypotension likely from volume depletion. This was due to recent diarrhea. This has resolved. Patient doing better at this time. Patient with underlying chronic diseases including chronic systolic CHF with ejection fraction 17% complicated with moderate pulmonary hypertension, global severe hypokinesis with atrial enlargement, atrial fibrillation and hypertension. Patient now stable at this time. At discharge patient will continue with Lasix 20 mg daily. Recommend to continue a 1500 cc per day fluid restriction and low-salt diet. Further adjustment in Lasix can be done by cardiology or nephrology if required. 4. Patient with atrial fibrillation on chronic anti coagulation therapy. Due to risk factors cardiology recommended to discontinue Eliquis. At discharge patient will only continue with aspirin 81 mg daily. Patient previously on amiodarone. This was discontinued due to elevated liver function. This was also recommended by Cardiology to discontinue. Recommend follow up with cardiology to further monitor. Patient was to have a cardiac ablation for her atrial fibrillation. This had to be rescheduled due to UTI. Recommend follow up with cardiac electrophysiology to further address. In the future patient may need to be also considered for pacemaker defibrillator. This can be further addressed as an outpatient. 5. As mentioned above patient had elevated liver function. This was likely related to amiodarone. After further discussion with Cardiology and GI, amiodarone was discontinued. Liver function has improved. Recommend to recheck CMP in 1-2 weeks to monitor resolution. 6. Patient with acute on chronic renal disease stage III. This has remained stable. At discharge she will continue with Calcitrol 0.5 mcg daily and vitamin-D 5000 mg daily. Recommend no further use of nonsteroidal anti-inflammatories. Future medications would to be renally dose. Recommend follow up with nephrology in 1 week. Recommend to recheck lab-CMP in 1 week. 7. Patient with hypothyroidism. Medication was adjusted. Medication decreased. At discharge she will continue with levothyroxine 100 mcg daily. Recommend to recheck tsh and free T4 in 1 month to monitor her progress. Further adjustment may be required at that time. This can be addressed by her PCP. 8. Patient with GERD. Patient may continue with Protonix 40 mg daily. 9. Patient may take stool softener as needed. Diet: AHA Activity: Fall precautions Time spent managing pt's care (in minutes): 55
[2019-12-10 12:53] VITALS: BP 105/76; TEMP 98.9
[2019-12-10 13:12] VITALS: BMI 25.7
[2019-12-10 13:17] VITALS: O2SAT 99
--- NOTE | 2019-12-10 21:09 | P.PN ---
Date of Service: 12/10/19 Vital Signs Temp Pulse Resp BP Pulse Ox 98.9 F 104 H 18 105/76 100 12/10/19 12:00 12/10/19 12:00 12/10/19 12:00 12/10/19 12:00 12/10/19 12:00 Microbiology Results 12/04/19 23:10 Clean Catch Urine [place] Count - Final >100,000 CFU/ML. 12/04/19 23:10 Clean Catch Urine - Final Escherichia Coli 12/05/19 10:15 Nasopharnyx Coronavirus COVID-19 PCR - Final Assessment/ Plan: Nephrology CPS stable without CP or SOB. Persistent edema. No palpitations overnight. Slept well last night. No acute events overnight. Vitals, medications, blood work and imaging reviewed in the chart. NAD. MMM. Neck supple. CTA. RRR. Soft Abd. No C/C/E. No rash. AAO. Normal Speech. General: Cooperative, Mild distress HEENT: Atraumatic Neck: Supple Respiratory: Rhonchi/gurgles Cardiovascular: No edema, Regular rate/rhythm Gastrointestinal: Soft and benign, Non-distended Musculoskeletal: No clubbing, No contractures Integumentary: No rashes, No cyanosis Neurological: Abnormal speech (Trach) Laboratory Data (last 24 hrs) 12/04/19 19:45: Lipase 109 12/04/19 19:43: PT 31.4 H, INR 2.71 12/04/19 19:43: WBC 5.2 D, Hgb 14.4, Hct 43.7, Plt Count 261 12/04/19 19:43: Sodium 135 L, Potassium 3.4 L, BUN 19 H, Creatinine 1.49 H, Glucose 167 H, Magnesium 2.1 D, Total Bilirubin 2.0 H, AST 59 H, ALT 71, Alkaline Phosphatase 97 Imagings Data: EXAM DESCRIPTION: RAD - Chest Single View - 12/04/2019 7:57 pm CLINICAL HISTORY: CHEST PAIN, shortness of breath COMPARISON: November 22 portable chest TECHNIQUE: AP portable chest image was obtained 12/04/2019 7:57 pm . FINDINGS: No peripheral mass consolidation. Lung markings less pronounced than seen previously. Cardiomegaly is present. Vasculature is mildly prominent. No measurable pleural effusion and no pneumothorax. No acute bony abnormality seen. No acute aortic findings suspected. IMPRESSION: Cardiomegaly similar to comparison. Vasculature and lung markings are less prominent than seen previously. No significant failure or volume overload at this time. EXAM DESCRIPTION: CT - Angio Aorta For Dissection - 12/04/2019 8:48 pm CLINICAL HISTORY: Chest pain;Abdominal distention COMPARISON: Portable chest same date, CT study February 2012 TECHNIQUE: Dynamically enhanced 3 mm thick images of the chest, abdomen, and upper pelvis were obtained during administration of approximately 150mL Isovue 370 IV contrast. Sagittal and coronal reconstruction images were generated using MIP and reviewed. Exam utilizes a protocol to evaluate entire course of the aorta. All CT scans are performed using dose optimization technique as appropriate and may include automated exposure control or mA/KV adjustment according to patient size. FINDINGS: Aorta is normal in diameter with no dissection or other acute aortic findings. Reconstruction images show no significant findings. No pulmonary artery acute finding. Cardiomegaly is present primarily a biatrial enlargement process. Left ventricle is prominent as well. No pericardial effu gonsalo. No peripheral mass or consolidation. No measurable ground-glass opacification. Interstitial pattern is not clearly outside of normal range. Trace amounts of pleural fluid present. No pleural thickening or pleural based mass. No pneumothorax. Small reactive type hilar lymph nodes are present. No mediastinal lymphadenopathy. No chest wall mass or abnormal axillary lymphadenopathy. Mild narrowing of the origin of the celiac artery. No narrowing of the superior mesenteric artery. MATT is patent. No renal artery abnormality seen. The liver, spleen and pancreas show no suspicious findings. No renal parenchymal abnormality seen. Medial to the left kidney there is a 4 centimeter oval fluid attenuation mass. Etiology is uncertain. This was present and measured 3.3 cm in 2012. This is not seen as a significant finding. No suspicious mass or abnormal lymphadenopathy. No free air or pneumatosis. Small amount of free fluid is present in the dependent portion of the pelvis. No urinary bladder abnormality. Uterus and ovaries show no suspicious findings for age. IMPRESSION: Negative CT scan of the aorta. Patient has significant cardiomegaly new from 2012. No pericardial effusion. Mild failure is possible. No significant degree of failure or volume overload. EXAM DESCRIPTION: US - Liver Only - 12/05/2019 9:05 am CLINICAL HISTORY: Right upper pain COMPARISON: None FINDINGS: The liver has a normal echotexture. Hepatopetal flow. A lesion is not visualized. The spleen measures 8 centimeters. Cholecystectomy IMPRESSION: Unremarkable liver ultrasound Unremarkable ultrasound spleen EXAM DESCRIPTION: US - Renal Ultrasound-Complete - 12/05/2019 9:05 am CLINICAL HISTORY: . Renal mass with chronic renal disease COMPARISON: December 04, 2019 cat scan FINDINGS: The right kidney measures 9 centimeters with a mildly increased echotexture The left kidney measures 9 centimeters with a mildly increased echotexture. 4 centimeter cyst abuts medial aspect of the left kidney Hydronephrosis is not seen. No gross abnormality of bladder IMPRESSION: Mildly increased renal echotexture consistent with parenchymal disease 4 centimeter cyst which abuts the medial aspect of the left kidney is likely benign EXAM DESCRIPTION: RAD - Abdomen 1 View (KUB) - 12/05/2019 6:54 pm CLINICAL HISTORY: abdominal pain Pain COMPARISON: No comparisons FINDINGS: The bowel gas pattern is non-obstructive. No evidence of free air or pneumatosis. No suspicious calcifications. No significant bony findings. Cholecystectomy clips. IMPRESSION: Negative examination. Conclusions/Impression: A/ BECCA worse in the setting of hypovolemia/ hypotension. Hyponatremia Hypokalemia Hypocalcemia HyperPO4 CKD III Systolic Diastolic CHF, chronic. Pulmonary HTN Acute hepatitis improving. Hypo/ Hyperglycemia Hypothyroidism, uncontrolled. Acute cystitis P/ Continue current POC and Medications. Consider diuretic as needed. Repletes lytes prn. Continue abx. Follow up with cardiology. Low sodium diet. No NSAIDs. AM labs. Daily weight. Case reviewed with Dr. Potts.
[2019-12-12 04:34] LABS: HBsAG Nonreactive (Nonreactive)
[2019-12-12 14:18] LABS: HIV AG/AB 4TH GEN Non-reactive (Non-reactive)
[2019-12-17 18:57] LABS: Alpha Fetoprotein-Tumor Marker 2.3 ng/mL (<6.1)
== END 2019-12-10 15:59 | disposition home or self-care (01) | DRG 689 ==
LOC: ER 18:19 → UNDOADMOB 22:57 → ERHOLD 22:57 → 4TH 12-05 17:21 → ERHOLD 12-06 07:53 → 2ND 12-06 13:55
PROVIDERS: ADMIT Family Medicine; ATTEND Internal Medicine
DX: N30.00 Acute cystitis without hematuria (principal); I50.23 Acute on chronic systolic (congestive) heart failure; I48.20 Chronic atrial fibrillation, unspecified; N17.9 Acute kidney failure, unspecified; E87.1 Hypo-osmolality and hyponatremia; I42.8 Other cardiomyopathies; B96.20 Unspecified Escherichia coli [E. coli] as the cause of diseases classified elsewhere; I95.9 Hypotension, unspecified; E86.0 Dehydration; K59.04 Chronic idiopathic constipation; E87.6 Hypokalemia; E83.51 Hypocalcemia; E83.39 Other disorders of phosphorus metabolism; E03.9 Hypothyroidism, unspecified; N18.3 Chronic kidney disease, stage 3 (moderate); I27.20 Pulmonary hypertension, unspecified; E16.2 Hypoglycemia, unspecified; R73.9 Hyperglycemia, unspecified; I48.0 Paroxysmal atrial fibrillation; Z79.01 Long term (current) use of anticoagulants; Z93.0 Tracheostomy status; Z23 Encounter for immunization; Z11.59 Encounter for screening for other viral diseases
CPT/HCPCS: 36415; 71045; 71275; 74018; 74175; 76705; 76770; 80048; 80053; 80074; 80076; 81003; 81015; 82024; 82088; 82105; 82140; 82533; 82947; 82977; 83690; 83735; 83880; 84100; 84244; 84439; 84443; 84484; 84550; 85025; 85610; 87077; 87086; 87088; 87186; 87389; 90471; 90670; 93005; 93306; 94760; 96365; 96375; 99285; C9113; J0696; J2270; J2405; J3010; J7030; J7042; Q9967; U0002